=== PATIENT | male | born 1945 | race Caucasian/White ===

== ENCOUNTER → 2019-03-04 13:09 | Outpatient (CLI) | payer SELFPAY ==
--- NOTE | 2019-03-04 13:18 | CT_ITS ---
STUDY: CARDIAC CALCIUM SCORING - CT CHEST REASON FOR EXAM: Male, 73 years old. Screening RADIATION DOSAGE (If Supplied By Facility): CTDIvol = ( 12.19 ) mGy, DLP = ( 195.04 ) mGycm TECHNIQUE: Axial non-enhanced images were acquired through the heart for the sole purpose of measuring coronary artery calcium. Individualized dose optimization techniques were used for this CT. COMPARISON: None. FINDINGS: Please see the patient's medical record for a personalized calcium score. The visualized lungs are grossly clear. 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 CT/Limited Chest CT w/CCTA IMPRESSION: Please see the patient's medical record for the visualized calcium score. 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 Please go to: [email or web address] , for a description of the calculator. Electronically Signed: Gokul Moser, at 14:43 EDT Tel , Service support ,
[2019-03-04 13:35] VITALS: BP 128/64; PULSE 61; RESP 18; TEMP 37; O2SAT 96; BMI 29.2
--- NOTE | 2019-03-04 16:58 | CA.SCORE ---
Calcium Scoring Date of Study:: 03/04/19 Coronary Calcium Scoring: High-resolution Computed Tomographic imaging of the chest was performed on 03/04/2019 with particular attention paid to the coronary arteries. Images from the examination were analyzed for the presence and extent of coronary artery calcification , using coronary calcium quantification software. The patient tolerated the procedure well and there were no complications. The results of the coronary calcification analysis are provided below. - Findings Left Main (LM): 5.17 Left Anterior Descending (LAD): 90.2 Left Circumflex (LCX): 0 Right Coronary Artery (RCA): 83 Total Agatston Score: 178.37 Percentile Ranking: Percentile ranking: Between 25% and 50% of people of the same gender/similar age had the same or lower scores Calcium Scoring Interpretation: 0 No identifiable atherosclerotic plaque. Very low cardiovascular disease risk. <5% chance of presence coronary artery disease A Negative Examination 1-10 Minimal Plaque burden. Significant coronary artery disease very unlikely. 11-100 Mild plaque burden. Likely mild or minimal coronary atherosclerosis. 101-400 Moderate plaque burden Moderate non-obstructive coronary artery disease highly likely. Over 400 Extensive plaque burden. High likelihood of at least one significant coronary stenosis (>50% diameter) Calcium Score: 101 - 400 Moderate non-obstructive coronary artery disease highly like Conclusion: Continue cardiovascular risk factor evaluation and care as deemed appropriate
== END ==
PROVIDERS: Family Provider Family Medicine; PCP Family Medicine; Referring Provider Family Medicine; Visit Provider Family Medicine
DX: Z13.6 Encounter for screening for cardiovascular disorders (principal); I65.29 Occlusion and stenosis of unspecified carotid artery; I71.2 Thoracic aortic aneurysm, without rupture
CPT/HCPCS: 75571; 76380

== ENCOUNTER → 2019-04-04 07:09 | Outpatient (CLI) | payer MEDICARE, OTHER, SELFPAY ==
[2019-03-22 14:57] VITALS: BMI 29.8
--- NOTE | 2019-04-04 07:11 | CT_ITS ---
STUDY: CT CHEST WITH CONTRAST REASON FOR EXAM: Male, 73 years old. Aneurysm. RADIATION DOSAGE (If Supplied By Facility): CTDIvol = ( 18.83 ) mGy, DLP = ( 682.02 ) mGycm TECHNIQUE: Transaxial imaging was performed following intravenous administration of 100 IV Isovue 300. Individualized dose optimization techniques were used for this CT. COMPARISON: None. FINDINGS: The lungs are hyperexpanded. Possible mild COPD. Slight fibrotic change along the posterior surfaces of both lower lobes. No infiltrates. No effusions. There is no demonstrated pleural abnormality. Normal heart and pericardium. Normal mediastinum. Normal hilar regions. Normal enhanced pulmonary arteries. There is a descending aortic aneurysm with greatest cross-sectional dimension of 4.6 cm. No evidence for dissection. Tortuous descending thoracic aorta. There are multi-level degenerative changes of the thoracic spine. There is no demonstrated abnormality of the visualized upper abdomen. CT/Chest WITH Contrast IMPRESSION: Probable COPD. No acute chest disease. Ascending aortic aneurysm with greatest cross-sectional dimension of 4.6 cm. No dissection. Electronically Signed: Ricki Jackson MD at 19:02 EDT , Service support ,
[2019-04-04 07:31] LABS: CREATININE FINGERSTICK 0.9 mg/dL (0.70-1.30); EGFR FINGERSTICK > 60.0000 mL/min (>60)
--- NOTE | 2019-04-04 07:45 | AAVD_ITS ---
Reason For Study: PAD Aorta Measurements Aorta Doppler Measurements Proximal aorta measures1.82 x 1.89cm. in cross- Peak systolic flow velocities within the proximal sectional axis. aorta measure 57.3 cm/sec. Proximal aorta measures1.87cm. in longitudinal Peak systolic flow velocities within the mid aorta axis. measure 56.3 cm/sec. Mid aorta measures1.57 x 1.44cm. in cross- Peak systolic flow velocities within the distal sectional axis. aorta measure 58.9 cm/sec. Mid aorta measures1.51cm. in longitudinal axis. Distal aorta measures1.30 x 1.46cm. in cross- sectional axis. Distal aorta measures1.46cm. in longitudinal axis. Left Iliac Artery Left iliac artery measures .94 x 1.00 cm. in the cross-sectional axis. Left iliac artery measures .94 cm. in the longitudinal axis. Peak systolic velocity in the left iliac artery measures 80.9 cm/sec. Right Iliac Artery Right iliac artery measures .89 x 1.07 cm. in the cross-sectional axis. Right iliac artery measures .88 cm. in the longitudinal axis. Peak systolic velocity in the right iliac artery measures 60.0 cm/sec. Procedure Aorta IVC Iliac vasculature or bypass grafts [id number]. The exam was diagnostic. Exam performed in department. Interpretation Summary 1.82 x 1.89cm abdominal aorta proximally. Normal flow velocities Right common iliac 0.89 x 1.07cm Left common iliac 0.94 x 1 cm No evidence for abdominal aortic aneurysm Ordering Physician: Virgilio Nava Performed By: Issac Figueroa RVDeondre
== END ==
PROVIDERS: Family Provider Family Medicine; PCP Family Medicine; Referring Provider Internal Medicine Cardiovascular Disease; Visit Provider Internal Medicine Cardiovascular Disease
DX: I71.2 Thoracic aortic aneurysm, without rupture (principal); I65.23 Occlusion and stenosis of bilateral carotid arteries; I10 Essential (primary) hypertension; R93.1 Abnormal findings on diagnostic imaging of heart and coronary circulation; R06.02 Shortness of breath
CPT/HCPCS: 71260; 93978; Q9967

== ENCOUNTER → 2019-04-10 06:59 | Outpatient (CLI) | payer MEDICARE, OTHER, SELFPAY ==
[2019-03-22 14:57] VITALS: BMI 29.8
--- NOTE | 2019-04-10 07:01 | ECHOCS_ITS ---
Reason For Study: DYSPNEA/SOB Procedure This was a 2D Doppler, Color Flow transthoracic echocardiogram. The study was technically difficult. Contrast injection was performed. Left Ventricle Normal LV size. Left ventricular systolic function is normal. The estimated ejection fraction is 65 %. No evidence for diastolic dysfunction. No regional wall motion abnormalities noted. Right Ventricle Normal RV size. Normal systolic function. Atria The left atrium is mildly enlarged. Normal right atrium. No doppler evidence for ASD. Mitral Valve There is moderate mitral annular calcification. Extension of the mitral annular calcification onto the posterior mitral valve leaflet. Mild (1+) mitral valve insufficiency. Tricuspid Valve Normal tricuspid valve. Mild to moderate (1-2+) tricuspid valve insufficiency. Right ventricular systolic pressure estimated to be 22 mmHg. Aortic Valve Trisinus/trileaflet aortic valve. Moderate focal aortic valve calcification. Pulmonic Valve The pulmonic valve is not well visualized. Great Vessels Moderately dilated ascending aorta. Pericardium/Pleural No pericardial effusion. Medication Diluted definity 3.0ml given slow IV push to enhance endocardial definition. MMode/2D Measurements & Calculations LVIDd: 4.5 cm IVSd: 0.90 cm Ao root diam: 4.9 cm LVIDs: 3.1 cm LVPWd: 0.99 cm RVDd: 3.1 cm FS: 31.4 % LAV(MOD-bp): 43.2 ml EDV(MOD-sp4): 108.7 ml LA A4 area: 16.6 cm2 LAV(MOD-bp) Indexed: 21.0 ml/m2 LAV(MOD-sp2): 38.4 ml LAV(MOD-sp4): 45.6 ml LA dimension(2D): 4.2 cm RA A4 area: 13.7 cm2 Time Measurements MV dec time: 0.25 sec Doppler Measurements & Calculations MV E max rush: 69.7 cm/sec Lat Peak E' Rush: 7.2 cm/sec Med Peak E' Rush: 6.0 cm/sec MV A max rush: 88.8 cm/sec E/E' lat: 9.7 E/E' med: 11.6 MV E/A: 0.78 Ao V2 max: 82.2 cm/sec LV V1 max: 67.2 cm/sec PA V2 max: 63.0 cm/sec Ao max P.7 mmHg LV V1 max P.8 mmHg TR max rush: 219.8 cm/sec TR max P.3 mmHg Interpretation Summary The study was technically difficult. Contrast injection was performed. Left ventricular systolic function is normal. The estimated ejection fraction is 65 %. The left atrium is mildly enlarged. There is moderate mitral annular calcification. Extension of the mitral annular calcification onto the posterior mitral valve leaflet. Mild (1+) mitral valve insufficiency. Mild to moderate (1-2+) tricuspid valve insufficiency. Moderate focal aortic valve calcification. Moderately dilated ascending aorta. Right ventricular systolic pressure estimated to be 22 mmHg. No evidence for diastolic dysfunction. Ordering Physician: Virgilio Nava Referring Physician: Leif Juarez Performed By: Yamila Smith RDCS, RVT
--- NOTE | 2019-04-10 09:39 | STRESSREP_ITS ---
Stress Test Report Date: 04-10-19 Procedure: Exercise tolerance test/imaging study Indications: Shortness of breath/dyspnea on exertion; abnormal coronary calcium score; CAD Consent: Per the patient Procedure: The patient exercised on a Jason protocol for 4 minutes and 30 seconds completing 1 minute of Stage I and 1 minute and 30 seconds of Stage II achieving a peak heart rate of 148 bpm (101 % predicted maximal heart rate) with a peak blood pressure 154/82 mmHg and a peak MET capacity of 6 METs. The baseline ECG demonstrated normal sinus rhythm. The peak exercise ECG demonstrated somatic/motion artifact with no obvious ECG changes. There was a rare PVC during exercise and a rare PAC during recovery. The functional capacity was considered decreased. There was no complaint of chest discomfort during exercise or recovery. The examination was discontinued secondary to dyspnea. Impression: 1. Technically adequate (percent predicted maximal heart rate greater than 85%) exercise tolerance test 2. Peak exercise ECG with somatic/motion artifact with no obvious ECG changes 3. There was a rare PVC during exercise and a rare PAC during recovery 4. Nuclear images pending Myocardial perfusion imaging study: Technique: The patient was injected with 9.1 mCi of technetium 99m Cardiolite and subsequently rest SPECT Cardiolite nuclear imaging was obtained in the horizontal long, vertical long, and short axis views. The patient exercised on a Jason protocol for 4 minutes and 30 seconds completing 1 minute of Stage I and 1 minute and 30 seconds of Stage II achieving a peak heart rate of 148 bpm (101 % predicted maximal heart rate) with a peak blood pressure 154/82 mmHg and a peak MET capacity of 6 METs. The patient was injected with 30.6 mCi of technetium 99m Cardiolite and subsequently stress SPECT Cardiolite nuclear imaging was obtained in the horizontal long, vertical long, and short axis views. A gated Cardiolite study at peak stress was obtained. Interpretation: Rest and stress SPECT Cardiolite nuclear imaging status post realignment, normalization, and attenuation correction, demonstrates the appearance of relati ve uniform tracer uptake at rest. Status post stress there is subtle diminished tracer uptake in portions of the distal anterior/anterior apical segments.. There is end systolic thickening and brightening. The gated Cardiolite study demonstrates myocardial thickening and inward wall motion. The reported LVEF is 66 %. Impression: 1. Rest and stress SPECT Cardiolite nuclear imaging demonstrate myocardial perfusion changes concerning for an area of stress-induced myocardial ischemia in portions of the distal anterior/anterior apical segments, however, an area of shifting soft tissue attenuation/artifact cannot necessarily be excluded. 2. The gated Cardiolite study reports an LVEF of 66 %. This note was generated with [employer] software. It may contain incorrect words, spelling, and punctuation that were not noted in checking the note before signing.
== END ==
PROVIDERS: Family Provider Family Medicine; PCP Family Medicine; Referring Provider Internal Medicine Cardiovascular Disease; Visit Provider Internal Medicine Cardiovascular Disease
DX: I71.2 Thoracic aortic aneurysm, without rupture (principal); I65.23 Occlusion and stenosis of bilateral carotid arteries; R93.1 Abnormal findings on diagnostic imaging of heart and coronary circulation; I10 Essential (primary) hypertension; R06.02 Shortness of breath
CPT/HCPCS: 78452; 93017; 93306; A9500; Q9957; A4216; C8929

== ENCOUNTER 2019-04-19 08:57 | Day surgery (SDC) | payer MEDICARE, OTHER, SELFPAY ==
[2019-03-22 14:57] VITALS: BMI 29.8
[2019-04-16 13:58] VITALS: BMI 29.8
[2019-04-16 15:10] LABS: Hematocrit 47.3 % (40-54); Hemoglobin 15.8 g/dL (13.0-16.5); Mean Corp Hgb Conc 33.4 g/dL (32-36); Mean Corpuscular Hgb 30.7 pg (27.0-32.0); Mean Corpuscular Volume 91.8 fL (80-94); Mean Platelet Vol. 9.2 fl (6.2-12.0); Platelet Count 241 K/mm3 (150-450); RBC Distribution Width CV 13.1 % (11.6-14.6); RBC Distribution Width SD 44.1 fl (35.1-43.9); Red Blood Count 5.15 M/mm3 (4.6-6.2); White Blood Count 9.8 K/mm3 (4.4-11.0)
[2019-04-16 15:15] LABS: International Normalized Ratio 1.2; Prothrombin Time (Protime)PT. 15.4 SECONDS (11.7-14.9)
[2019-04-16 15:16] LABS: Partial Thromboplast Time 33.8 Seconds (24.1-36.2)
[2019-04-16 15:49] LABS: AST(SGOT) 24 U/L (15-37); Alanine Aminotransfer ALT/SGPT 33 U/L (16-61); Albumin, Serum 3.8 g/dL (3.2-5.0); Alkaline Phosphatase 70 U/L (45-117); Anion Gap 8 (5-15); BUN 18 mg/dL (7-18); BUN/Creat Ratio 17.3 RATIO (10-20); Bilirubin, Direct 0.11 mg/dL (0.00-0.30); Chloride 108 mmol/L (98-107); Cholesterol 164 mg/dL (200); Creatinine, Serum 1.04 mg/dL (0.70-1.30); EST Glomerular Filtration Rate 74 mL/min (>60); Est Glom Filt Rate - Afr Amer 90 mL/min (>60); Globulin 3.3 g/dL (2.2-4.2); Glucose 99 mg/dL (74-106); High Density Lipoprotein 38 mg/dL; Potassium 3.9 mmol/L (3.5-5.1); Protein, Total 7.1 g/dL (6.4-8.2); Sodium Level 142 mmol/L (136-145); Triglycerides 179 mg/dL; Very Low Density Lipoprotein 36 mg/dL (5-40)
[2019-04-18 07:42] VITALS: BMI 29.8
--- NOTE | 2019-04-19 11:41 | PCM.HP.BLA ---
Problem List (1) Abnormal stress test Status: Acute (2) Abnormal cardiac CT angiography Status: Acute (3) SOB (shortness of breath) Status: Acute (4) Essential hypertension Status: Chronic History and Physical Date of Admission: 04/19/19 [facility] 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 The patient states that he has had a history of hypertension. He has been treated for it. He believes his blood pressures been under reasonably good control. He has had shortness of breath and dyspnea. He attributes this to his age and weight gain and diminished functional status. He denies ongoing chest discomfort associated with his shortness of breath/dyspnea. He has not had near syncope or syncope. He has undergone previous noninvasive evaluation in the past. It appears that in June 2006 through the [facility] system he underwent a stress echocardiogram which was deemed negative. He states secondary to a [employer] screening event he proceeded with carotid artery duplex study in January of this year through the [facility] system. Those findings demonstrated mild disease bilaterally. He states he was encouraged to have a chest CT to evaluate for coronary calcification. This was performed recently at [facility]. His coronary calcium score was reported at 178. This placed him in a moderate plaque burden risk. Also on his CT scan he was found to have evidence per radiology of a 5.0 x 4.9 cm aneurysm of the a sending aorta. He states this is a new diagnosis for him. Today in the office he had an ECG. He was noted to be in sinus rhythm with PACs and poor R wave progression. He states that he and his are planning a road trip to the [facility] in approximately 1 week. He states they will be gone for approximately 6 weeks. However his states that there is no confirmed dates as of yet and this trip can be postponed if need be. Intake Vital Signs 03/22/19 Height 5 ft 9 in 03/22/19 Weight: 202 lb 03/22/19 Body Mass Index (BMI) 29.8 03/22/19 Blood Pressure 132/64 H 03/22/19 Blood Pressure Location Lt brachial 03/22/19 Blood Pressure Position Sitting 03/22/19 Respiratory Rate 16 03/22/19 Pulse Rate 60 03/22/19 Pulse Source Auscultation 03/22/19 Body Mass Index (BMI) 29.2 Intake Visit Reasons: Abn calcium score/Ref. [employer] Media Relations Specialist Required: No Accompanied by: Allergies lanolin Allergy (Severe, Verified 03/22/19 14:57) Rash mold Allergy (Verified 03/22/19 14:57) Unknown Penicillins Adverse Reaction (Verified 03/22/19 14:57) Swelling Medications C,E,Zinc,Copper 11/Fwudb3i/Lut [Ocuvite Adult 50 Plus Softgel] 1 ea PO DAILY 03/04/19 [History Confirmed 03/22/19] Finasteride [Proscar] 5 mg PO DAILY 03/04/19 [History Confirmed 03/22/19] Lisinopril [Zestril] 10 mg PO DAILY 03/04/19 [History Confirmed 03/22/19] Selenium 200 mcg PO DAILY 03/04/19 [History Confirmed 03/22/19] Tamsulosin HCl [Flomax] 0.4 mg PO DAILY 03/04/19 [History Confirmed 03/22/19] aspirin 81 mg tablet,delayed release 81 mg PO DAILY #30 tab 03/22/19 [Rx Confirmed 03/22/19] triamcinolone acetonide 0.1 % topical cream 1 applic TOPICAL TID PRN 03/22/19 [History Confirmed 03/22/19] turmeric root extract 1,053 mg tablet 1,000 mg PO DAILY tab 03/22/19 [History Confirmed 03/22/19] REPLACED BY [facility] Medical History Bilateral carotid artery stenosis (Chronic) COPD (chronic obstructive pulmonary disease) (Chronic) Essential hypertension (Chronic) Abnormal cardiac CT angiography (Acute) History of poliomyelitis (Acute) BPH (benign prostatic hyperplasia) (Chronic) DDD (degenerative disc disease) (Chronic) Macular degeneration (Chronic) Psoriasis (Chronic) Surgical History History of hernia repair (Resolved) History of repair of left rotator cuff (Resolved) S/P clubfoot release (Resolved) Family History Father CAD (coronary artery disease) Hypertension Mother Hypertension Social History (Updated 03/22/19 @ 17:37 by Virgilio Nava MD) Smoking Status: Former smoker alcohol intake: current details: occasional substance use type: does not use caffeine: Yes Type: coffee Number of servings: 4 ROS Const Const: Negative for fatigue, weakness, frequent falls, excessive sweating, weight gain or weight loss Eyes Eyes: Negative for transient loss of vision, blurry vision or change in vision ENT ENT: Negative for dizziness or balance problems Cardio Chest Pain: No Palpitations: No Edema: None Muscle aches with walking: None Resp Respiratory: Positive for SOB with activity (increased last year ) and Cough (dry); negative for SOB at rest GI GI: Negative vomiting or vomiting blood/hematemesis : Negative for hematuria Musc Musc: Negative for muscle aches/ myalgia, muscle weakness, joint pain or balance problems Skin Skin: Negative non-healing lesions or rash Neuro Neuro: Negative for dizziness, lightheadedness, orthostatic symptoms, frequent falls, weakness or blurry vision Talha Hematologic/Lymphatic: Negative for easy bleeding Endo Endo: Negative for fatigue or excessive sweating Psych Psych: Negative for anxiety or depression Allergy Allergy/Immunology: Negative for hives, Negative for rash Cardiology Exam Const Appearance: cooperative, healthy appearing, comfortable, well developed and well groomed Nutritional Appearance: overweight Orientation: alert, awake and oriented x3 Limitations: altered mental status Head Head: normal to inspection, normocephalic and atraumatic Ears: hearing grossly normal bilaterally Nose: external nose normal Face and Sinus: face symmetric Mouth: oral mucosae normal Teeth and gingiva: fair dentition Eyes Eyelids: eyelids normal Conjunctivae: conjunctivae normal Pupils: PERRL EOM: EOM intact bilaterally Neck Neck: normal visual inspection and full ROM Carotids: normal carotid upstroke Chest Chest inspection: normal inspection of the chest, symmetric chest movement and normal respiratory effort Auscultation: Bilateral: Clear to Auscultation Cardio Palpation: normal PMI Rate: regular rate Rhythm: regular rhythm Heart sounds: S1 normal and S2 normal GI GI: normal to inspection, soft and bowel sounds present Neuro General: alert, awake, oriented x3 and moves all extremities Skin Skin: no rashes or lesions noted Extremities Pulses: Normal: Right Radial Pulse, Left Radial Pulse Lower Extremity Edema: None: Bilateral Psych Psychological: normal affect Assessment & Plan 1. Thoracic aortic aneurysm without rupture I71.2 Plan At the present time he does have findings of a thoracic aortic aneurysm. This is based upon a noncontrast CT scan. He will undergo further evaluation. This will include an echocardiogram to further assess his aortic root/a sending aorta as well as his left ventricular wall motion and systolic function based upon his findings and his symptoms. He will have a formal chest CT scan with IV contrast to further evaluate his entire thoracic aorta in more detail. Based upon this finding, his age, his history of smoking, he will also have an abdominal ultrasound performed to evaluate for any evidence of abdominal aortic aneurysm. His findings will help lead to further evaluation and care. He knows that he may require a CT surgery consultation as a baseline evaluation in anticipation for a future thoracic aortic aneurysm surgical procedure. Orders Orders: Chest WITH Contrast Today Echo Complete Today Nuclear Stress Test - Treadmil Today Abd Aortic/IVC Duplex scan Today Lipid Profile 1 Day Liver Profile 1 Day 2. Bilateral carotid artery stenosis I65.23 Plan He does have mild bilateral carotid artery stenosis based upon his noninvasive studies. He does need to continue risk factor modification and medical management. Orders Orders: Chest WITH Contrast Today Echo Complete Today Nuclear Stress Test - Treadmil Today Abd Aortic/IVC Duplex scan Today Lipid Profile 1 Day Liver Profile [address] angiography R93.1 Plan He does have an abnormal chest CT scan for coronary artery calcification. It has placed him in a moderate risk category. Based upon this finding and his symptoms he will undergo further evaluation. This will include an echocardiogram to assess his left ventricular wall motion systolic function and it will include an exercise tolerance test/imaging study to evaluate for any obvious evidence of myocardial ischemia that would warrant further evaluation in the cardiac catheterization laboratory. Orders Orders: 12 Lead EKG performed by [facility] Today Chest WITH Contrast Today Echo Complete Today Nuclear Stress Test - Treadmil Today Abd Aortic/IVC Duplex scan Today Lipid Profile 1 Day Liver Profile 1 Day 4. Essential hypertension I10 Plan He will continue medical management of his hypertension. Orders Orders: 12 Lead EKG performed by BMS Today Chest WITH Contrast Today Echo Complete Today Nuclear Stress Test - Treadmil Today Abd Aortic/IVC Duplex scan Today Lipid Profile 1 Day Liver Profile 1 Day 5. COPD (chronic obstructive pulmonary disease) J44.9 Plan He will continue evaluation care COPD by his other physicians. 6. Shortness of breath R06.02 Plan He does have shortness of breath and dyspnea. There may be a component related to his age, his weight, his diminished functional status, however, there is also concern based on his cardiovascular findings of underlying CAD and myocardial ischemia or changes in his left ventricular wall motion or systolic function, etc. Thus he will undergo evaluation care as noted above. Orders Orders: Chest WITH Contrast Today Echo Complete Today Nuclear Stress Test - Treadmil Today Abd Aortic/IVC Duplex scan Today Plan Detail Other Orders Orders: Lipid Profile 1 Day E78.00 Liver Profile 1 Day E78.00 Other Medications New: aspirin 81 mg PO DAILY 30 tabs 0RF Additional Comments He was asked to initiate aspirin 81 mg p.o. 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 His medical regimen may change based upon his ongoing cardiovascular evaluation and care. It is noted that in 2014 he had a [facility] report of a cholesterol 179 with an LDL of 113 and an HDL of 47. His triglycerides were 96. More recent lipid profiles are unavailable for review at this time. If no other lipid profiles can be found and he may need this repeated to assist in his risk factor evaluation and medical therapy. The above was discussed with the patient and spouse. He was agreeable to proceeding in this manner. Both he and his are agreeable to postponing their trip to the [facility] if need be to accomplish his cardiovascular evaluation. Thank you for allowing me to participate in the care of your patient. Please don't hesitate to call if any issues arise. This note was generated using a voice recognition system and there may be incorrect words, spelling or punctuation that were not noted when reviewing the office note prior to saving. Follow Up 3 Months (with PFM) Coding Level of Care Code Off vis,new,level 5 Diagnoses Thoracic aortic aneurysm without rupture I71.2 Bilateral carotid artery stenosis I65.[address] angiography R93.1 Essential hypertension I10 COPD (chronic obstructive pulmonary disease) J44.9 ??Chronic bronchitis type: unspecified Shortness of breath R06.02 Coding Level of Care Code Off vis,new,level 5 Diagnoses Thoracic aortic aneurysm without rupture I71.2 Bilateral carotid artery stenosis I65.[address] angiography R93.1 Essential hypertension I10 COPD (chronic obstructive pulmonary disease) J44.9 ??Chronic bronchitis type: unspecified Shortness of breath R06.02 Supplemental Info Supplemental Information Diagnostics Electrocardiogram 03/22/[address] 03/04/19 03/22/19 3117 <Electronically signed by Virgilio Nava MD> Date Virgilio Nava MD Cosigner Signature: Date (if applicable) CC: Leif Juarez MD ~ I have examined the patient the following changes are noted: The patient underwent further evaluation with an exercise tolerance test/imaging study. The results are as noted below. Stress Test Report Date: 04-10-19 Procedure: Exercise tolerance test/imaging study Indications: Shortness of breath/dyspnea on exertion; abnormal coronary calcium score; CAD Consent: Per the patient Procedure: The patient exercised on a Jason protocol for 4 minutes and 30 seconds completing 1 minute of Stage I and 1 minute and 30 seconds of Stage II achieving a peak heart rate of 148 bpm (101 % predicted maximal heart rate) with a peak blood pressure 154/82 mmHg and a peak MET capacity of 6 METs. The baseline ECG demonstrated normal sinus rhythm. The peak exercise ECG demonstrated somatic/motion artifact with no obvious ECG changes. There was a rare PVC during exercise and a rare PAC during recovery. The functional capacity was considered decreased. There was no complaint of chest discomfort during exercise or recovery. The examination was discontinued secondary to dyspnea. Impression: 1. Technically adequate (percent predicted maximal heart rate greater than 85%) exercise tolerance test 2. Peak exercise ECG with somatic/motion artifact with no obvious ECG changes 3. There was a rare PVC during exercise and a rare PAC during recovery 4. Nuclear images pending Myocardial perfusion imaging study: Technique: The patient was injected with 9.1 mCi of technetium 99m Cardiolite and subsequently rest SPECT Cardiolite nuclear imaging was obtained in the horizontal long, vertical long, and short axis views. The patient exercised on a Jason protocol for 4 minutes and 30 seconds completing 1 minute of Stage I and 1 minute and 30 seconds of Stage II achieving a peak heart rate of 148 bpm (101 % predicted maximal heart rate) with a peak blood pressure 154/82 mmHg and a peak MET capacity of 6 METs. The patient was injected with 30.6 mCi of technetium 99m Cardiolite and subsequently stress SPECT Cardiolite nuclear imaging was obtained in the horizontal long, vertical long, and short axis views. A gated Cardiolite study at peak stress was obtained. Interpretation: Rest and stress SPECT Cardiolite nuclear imaging status post realignment, normalization, and attenuation correction, demonstrates the appearance of relative uniform tracer uptake at rest. Status post stress there is subtle diminished tracer uptake in portions of the distal anterior/anterior apical segments.. There is end systolic thickening and brightening. The gated Cardiolite study demonstrates myocardial thickening and inward wall motion. The reported LVEF is 66 %. Impression: 1. Rest and stress SPECT Cardiolite nuclear imaging demonstrate myocardial perfusion changes concerning for an area of stress-induced myocardial ischemia in portions of the distal anterior/anterior apical segments, however, an area of shifting soft tissue attenuation/artifact cannot necessarily be excluded. 2. The gated Cardiolite study reports an LVEF of 66 %. Status post review of the patient's clinical course was recommended the patient undergo further evaluation with diagnostic cardiac catheterization. The procedure and risks were discussed with him. The patient was in agreement with this approach. This note was generated using a voice recognition system and there may be incorrect words, spelling or punctuation that were not noted when reviewing the office note prior to saving.
--- NOTE | 2019-04-19 13:44 | CL.D_ITS ---
Patient Name: MARLON HAMMOND Study Date: 04/19/2019 Performing: Virgilio Nava MD Ht: 68.89 inches 175 cm : 1945 Wt: 202.83 lbs 92 kg Age: 73 Gender: male BSA: 2.08 PROCEDURE(S) PERFORMED FI91-[facility]/COR/LV CLINICAL PROFILE AND INDICATIONS Indications: Suspected CAD Heart Failure: None Stress/Imaging Date: 04/10/2019Stress Test with SPECT MPI: Positive Angina Classification Anginal Classification w/in 2 Weeks: CCS III CONCLUSIONS Elevated Left Ventricular End Diastolic Pressure Normal LV size, wall motion,and systolic function LVEF: by LV gram 65 % [place] Multivessel CAD Mitral Valve Insufficiency Mild Aortic Root Aneurysm RECOMMENDATIONS Risk factor modification Medical therapy DESCRIPTION OF PROCEDURE The patient arrived to the procedure lab. The risks and benefits of the procedure as well as a full d escription of our services here and current unavailability of surgical backup were fully explained to the patient and/or their significant other prior to the catheterization. The Timeout was completed, verifying the correct patient and procedure. The patient's procedural site was prepped and draped in the usual fashion. Local anesthetic was given subcutaneously to right radial region with Lidocaine 2% . Local anesthetic was given subcutaneously to right groin region with Lidocaine 2%. Using a modified Seldinger technique, arterial access was obtained via the right femoral artery, a 4Fr sheath was ins erted Left Coronary Artery selective angiography was performed in multiple views using a 4 Fr. JL5 c atheter. Right Coronary Artery selective angiography was then performed in multiple views using a 4 F r. 3DRC catheter. Left Ventriculography was performed in TORRES projection using a 4 Fr. Pigtail catheter. LV to AO pullback pressures were then recorded.The arterial sheath was pulled and m anual compression applied until hemostasis is achieved. CORONARY ANGIOGRAPHY DOMINANCE: Right Dominant LEFT HEART ASSESSMENT Left Ventricular Ejection Fraction: by LV Gram 65 % Normal LV wall motion Elevated Left Ventricular End Diastolic Pressure LVEDP: 26 mmHg LEFT MAIN: proximal: smooth: 10 - 25 % Stenosis LEFT ANTERIOR DESCENDING ARTERY: PROX LAD: Mild luminal irregularities CIRCUMFLEX ARTERY: MID CIRC: Mild luminal irregularities RIGHT CORONARY ARTERY: PROX RCA: Mild luminal irregularities VALVE FINDINGS: Normal Aortic Valve function Mitral Valve Insufficiency - Grade 1 AORTIC ROOT: Aneurysm COMPLICATIONS No Complications PROCEDURE MEDICATIONS Versed 1 mg IV Fentanyl 50 mcg IV Oxygen: 2 L/min via nasal cannula SUMMARY OF HEMODYNAMIC DATA Time AIR REST ECG 09:19:26 AO 149/87 (116) SA 12:38:50 LV 153/3, 32 12:52:04 LV 151/-8, 26 12:52:10 LV 167/-1, 26 12:54:52 LVp 172/-4, 24 12:54:57 AOp 174/83 (120) 12:55:02 Signed By Virgilio Nava MD On 04/19/2019 13:43:17 Virgilio Nava MD
[2019-04-19 15:15] VITALS: BP 157/74; PULSE 79; RESP 18; O2SAT 97
[2019-04-19 16:15] VITALS: BP 137/60; PULSE 85; RESP 16; O2SAT 97
[2019-04-19 17:49] VITALS: BP 137/90; PULSE 85; RESP 18; O2SAT 97
== END 2019-04-19 17:38 | disposition home or self-care (01) ==
LOC: CLSP 08:57 → PCU 15:40
PROVIDERS: Family Provider Family Medicine; PCP Family Medicine; Referring Provider Internal Medicine Cardiovascular Disease; Visit Provider Internal Medicine Cardiovascular Disease
DX: I25.10 Atherosclerotic heart disease of native coronary artery without angina pectoris (principal); I34.0 Nonrheumatic mitral (valve) insufficiency; I71.2 Thoracic aortic aneurysm, without rupture; I65.23 Occlusion and stenosis of bilateral carotid arteries; I10 Essential (primary) hypertension; J44.9 Chronic obstructive pulmonary disease, unspecified; R06.02 Shortness of breath; R93.1 Abnormal findings on diagnostic imaging of heart and coronary circulation; R94.39 Abnormal result of other cardiovascular function study; Z79.82 Long term (current) use of aspirin; Z79.899 Other long term (current) drug therapy; Z87.891 Personal history of nicotine dependence
CPT/HCPCS: 36415; 80048; 80061; 80076; 85027; 85610; 85730; 93458; 99152; 99153; J7040; Q9967; C1769; C1894

== ENCOUNTER → 2020-07-13 08:00 | Outpatient (CLI) | payer MEDICARE, OTHER, SELFPAY ==
[2020-01-08 15:33] VITALS: BMI 30.4
[2020-07-11 10:52] LABS: Creatinine, Serum 0.94 mg/dL (0.70-1.30); EST Glomerular Filtration Rate 83 mL/min (>60); Est Glom Filt Rate - Afr Amer 101 mL/min (>60)
--- NOTE | 2020-07-13 08:01 | CT_ITS ---
STUDY: CT CHEST WITH CONTRAST REASON FOR EXAM: Male, 74 years old. TAA RADIATION DOSAGE (If Supplied By Facility): CTDIvol = ( 13.81 ) mGy, DLP = ( 514.70 ) mGycm TECHNIQUE: Transaxial imaging was performed following intravenous administration of IV 100mL Isovue-300. Multiplanar coronal and sagittal images were reformatted. Individualized dose optimization techniques were used for this CT. COMPARISON: Comparison is made with prior study dated 04/04/2019. FINDINGS: Stable mild degree of increased linear markings at the lung bases suggestive of scarring. There is no demonstrated pleural abnormality. Normal heart and pericardium. Normal mediastinum. Normal hilar regions. Normal enhanced pulmonary arteries. Once again, there is aneurysmal dilatation of the ascending thoracic aorta. The root of the aorta measures 4.7 cm. This is essentially unchanged. There are multi-level degenerative changes of the thoracic spine. Increased kyphosis. There is no demonstrated abnormality of the visualized upper abdomen. CT/Chest WITH Contrast IMPRESSION: Stable dilatation of the root of the ascending thoracic aorta with a measurement of 4.7 cm. Electronically Signed: Lc Burgess, at 14:05 EST , Service support ,
== END ==
PROVIDERS: PCP Family Medicine; Referring Provider Internal Medicine Cardiovascular Disease; Visit Provider Internal Medicine Cardiovascular Disease
DX: I71.2 Thoracic aortic aneurysm, without rupture (principal)
CPT/HCPCS: 36415; 71260; 82565; Q9967

== ENCOUNTER → 2020-10-12 20:00 | Outpatient (CLI) | payer MEDICARE, OTHER, SELFPAY ==
[2020-09-09 15:17] VITALS: BMI 29.9
== END ==
PROVIDERS: PCP Family Medicine; Referring Provider Nurse Practitioner Acute Care; Visit Provider Nurse Practitioner Acute Care
DX: G47.33 Obstructive sleep apnea (adult) (pediatric) (principal)
CPT/HCPCS: 95811

== ENCOUNTER → 2021-06-18 12:36 | Outpatient (CLI) | payer MEDICARE, OTHER, SELFPAY ==
--- NOTE | 2021-06-18 12:40 | CT_ITS ---
STUDY: CTA CHEST REASON FOR EXAM: Male, 75 years old. thoracic aortic aneurysm RADIATION DOSAGE (If Supplied By Facility): CTDIvol = ( 12.92 ) mGy, DLP = ( 536.26 ) mGycm TECHNIQUE: The examination was performed with the intravenous administration of IV 100mL Isovue-370. Post-processing of the angiographic images was performed, with multiplanar reformation and 3D reconstruction. Individualized dose optimization techniques were used for this CT. COMPARISON: CT chest from 07/13/2020. FINDINGS: Lungs/pleura: Bibasilar dependent atelectasis. Some linear areas of scarring in the lung bases. No focal consolidations effusions, or pneumothorax. No suspicious pulmonary nodules/masses. Central airways are patent. Mediastinum: Heart size is normal. No pericardial effusion. No mediastinal masses. No lymphadenopathy. 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 The aortic arch and descending aorta is normal caliber with mild arterial atherosclerotic calcifications and atheromatous plaque. No dissection. Pulmonary arteries are unremarkable. Reflux of contrast into the portal venous system. Bones/soft tissues: Multilevel degenerative changes of thoracic spine. No destructive osseous lesions. Remote left-sided rib fractures. Visualized abdomen: Unremarkable. CT/CTA Chest W/WO Contrast IMPRESSION: 1. 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 2. No acute findings. 3. Lungs are clear. Electronically Signed: Balaji Aponte MD at 15:00 EST Tel , Service support ,
[2021-06-18 15:00] LABS: CREATININE FINGERSTICK 0.8 mg/dL (0.70-1.30); EGFR FINGERSTICK > 60.0000 mL/min (>60)
== END ==
PROVIDERS: PCP Family Medicine; Referring Provider Internal Medicine Cardiovascular Disease; Visit Provider Internal Medicine Cardiovascular Disease
DX: I71.2 Thoracic aortic aneurysm, without rupture (principal)
CPT/HCPCS: 71275; Q9967

== ENCOUNTER → 2022-07-01 | Outpatient (CLI) | payer MEDICARE, OTHER, SELFPAY ==
--- NOTE | 2022-07-01 13:56 | ECHOD_ITS ---
Reason For Study: MV INSUFF Procedure This was a 2D Doppler, Color Flow transthoracic echocardiogram. The exam was of adequate technical quality. Exam performed in department. Left Ventricle Normal LV size. Left ventricular systolic function is normal. The estimated ejection fraction is 70 %. No evidence for diastolic dysfunction. No regional wall motion abnormalities noted. Right Ventricle Normal RV size. Normal systolic function. Atria The left atrium is mildly enlarged. Normal right atrium. No doppler evidence for ASD. Mitral Valve There is moderate mitral annular calcification. Extension of the mitral annular calcification onto the base of the posterior mitral valve leaflet. The mitral papillary muscle appears thickened and/or calcified. Mild (1+) mitral valve insufficiency. Tricuspid Valve Normal tricuspid valve. Mild to moderate (1-2+) tricuspid valve insufficiency. Right ventricular systolic pressure estimated to be 39 mmHg. Aortic Valve Trisinus/trileaflet aortic valve. Mild focal aortic valve calcification. Mild (1+) aortic valve insufficiency. Pulmonic Valve The pulmonic valve is not well visualized. Great Vessels Moderately dilated aortic root. Pericardium/Pleural No pericardial effusion. MMode/2D Measurements & Calculations LVIDd: 4.7 cm IVSd: 1.1 cm Ao root diam: 4.7 cm LVIDs: 3.2 cm LVPWd: 0.85 cm RVDd: 3.7 cm FS: 32.1 % LAV(MOD-bp): 58.4 ml LVAd ap4: 28.9 cm2 SV(MOD-sp4): 64.1 ml LAV(MOD-bp) Indexed: 28.6 ml/m2 LVLd ap4: 7.4 cm LAV(MOD-sp2): 56.9 ml EDV(MOD-sp4): 93.3 ml LAV(MOD-sp4): 56.9 ml EDV(sp4-el): 95.4 ml LVAs ap4: 13.8 cm2 LVLs ap4: 6.2 cm ESV(MOD-sp4): 29.2 ml ESV(sp4-el): 26.2 ml EF(MOD-sp4): 68.7 % EF(sp4-el): 72.5 % SV(sp4-el): 69.2 ml LA A4 area: 20.4 cm2 LA dimension(2D): 4.1 cm RA A4 area: 18.2 cm2 Time Measurements MV dec time: 0.26 sec Doppler Measurements & Calculations MV E max rush: 72.5 cm/sec Lat Peak E' Rush: 9.5 cm/sec Med Peak E' Rush: 7.9 cm/sec MV A max rush: 86.4 cm/sec E/E' lat: 7.7 E/E' med: 9.2 MV E/A: 0.84 MV V2 max: 84.5 cm/sec Ao V2 max: 86.2 cm/sec MV max P.9 mmHg MV dec slope: 277.0 cm/sec2 Ao max P.0 mmHg MV V2 mean: 51.7 cm/sec Ao V2 mean: 58.6 cm/sec MV mean P.2 mmHg Ao mean P.6 mmHg MV V2 VTI: 26.5 cm Ao V2 VTI: 21.4 cm AV (velocity ratio): 1.0 AI max rush: 331.6 cm/sec LV V1 max: 84.0 cm/sec PA V2 max: 87.8 cm/sec AI max P.0 mmHg LV V1 max P.8 mmHg PA V2 mean: 62.8 cm/sec LV V1 mean P.5 mmHg AI dec slope: 163.3 cm/sec2 LV V1 mean: 56.0 cm/sec AI P1/2t: 594.7 msec LV V1 VTI: 21.9 cm TR max rush: 298.5 cm/sec TR max P.7 mmHg ECHO/Echo Complete Interpretation Summary Left ventricular systolic function is normal. The estimated ejection fraction is 70 %. There is moderate mitral annular calcification. Extension of the mitral annular calcification onto the base of the posterior mi tral valve leaflet. The mitral papillary muscle appears thickened and/or calcified. Mild (1+) mitral valve insufficiency. Mild to moderate (1-2+) tricuspid valve insufficiency. Mild focal aortic valve calcification. Mild (1+) aortic valve insufficiency. Moderately dilated aortic root. Right ventricular systolic pressure estimated to be 39 mmHg. No evidence for diastolic dysfunction. Ordering Physician: Tika Tirado Referring Physician: Tika Tirado Performed By: Jannette Morgan RCS
--- NOTE | 2022-07-01 13:56 | CT_ITS ---
STUDY: CTA CHEST REASON FOR EXAM: Male, 76 years old. TAA F/U RADIATION DOSAGE (If Supplied By Facility): CTDIvol = ( 13.05 ) mGy, DLP = ( 445.65 ) mGycm TECHNIQUE: The examination was performed with the intravenous administration of IV 100mL Isovue-370. Post-processing of the angiographic images was performed, with multiplanar reformation and 3D reconstruction. Individualized dose optimization techniques were used for this CT. COMPARISON: Comparison is made with prior examination of 06/18/2021. FINDINGS: Normal enhancement of the main pulmonary artery and right and left pulmonary arteries. Normal enhancement of the bilateral peripheral pulmonary arteries. There is no demonstrated pulmonary embolism. There is aneurysmal dilatation of the ascending aorta. The transverse diameter of the ascending aorta measures 52.2 mm''s. It previously measured 50 mm. There is no demonstrated aortic dissection. Normal heart and pericardium. Normal mediastinum. Normal hilar regions. Normal visualized trachea and bronchi. The lungs are well expanded. Stable mild increased linear markings at the lung bases suggestive of bibasilar scarring. Mild degree of emphysematous change. Normal pleura. Normal chest wall structures. There are degenerative changes of thoracic spine. Fatty infiltration of the liver. CT/CTA Chest W/WO Contrast IMPRESSION: Persistent dilatation of the proximal ascending thoracic aorta with a transverse dimension of 52.2 mm. Electronically Signed: Lc Burgess MD at 15:06 EST ,
[2022-07-01 14:50] LABS: CREATININE FINGERSTICK < 0.9 mg/dL (0.70-1.30); EGFR FINGERSTICK > 60.0000 mL/min (>60)
== END | disposition home or self-care (01) ==
LOC: CT 13:54
PROVIDERS: PCP Family Medicine; Referring Provider Physician Assistant Medical; Visit Provider Physician Assistant Medical
DX: I34.0 Nonrheumatic mitral (valve) insufficiency (principal)
CPT/HCPCS: 71275; 93306; Q9967

== ENCOUNTER → 2023-03-09 | Outpatient (CLI) | payer MEDICARE, OTHER, SELFPAY ==
--- NOTE | 2023-03-09 13:50 | CT_ITS ---
STUDY: CTA CHEST REASON FOR EXAM: Male, 77 years old. TAA RADIATION DOSAGE (If Supplied By Facility): CTDIvol = ( 20.19 ) mGy, DLP = ( 353.78 ) mGycm TECHNIQUE: The examination was performed with the intravenous administration of IV 100mL Isovue-370. Post-processing of the angiographic images was performed, with multiplanar reformation and 3D reconstruction. Individualized dose optimization techniques were used for this CT. COMPARISON: None. FINDINGS: Normal enhancement of the main pulmonary artery and right and left pulmonary arteries. Normal enhancement of the bilateral peripheral pulmonary arteries. There is no demonstrated pulmonary embolism. Atherosclerotic changes of the aorta with aneurysmal dilatation of the ascending aorta measuring approximately 5 cm maximum dimension without periaortic leak There is no demonstrated aortic dissection. Heart size is normal. There is mild coronary artery calcification Normal mediastinum. Normal hilar regions. Normal visualized trachea and bronchi. The lungs are well expanded. Minor subsegmental atelectasis in the right lower lobe. Mild bibasilar interstitial thickening. Normal pleura. Normal chest wall structures. Dorsal spine demonstrates degenerative change and multilevel chronic compression deformities Normal visualized upper abdomen. CT/CTA Chest W/WO Contrast IMPRESSION: ASHD. With proximal ascending aortic aneurysm measuring approximately 5 cm in diameter stable since previous exam. Mild subsegmental atelectasis right lower lobe and minor bibasilar interstitial thickening Electronically Signed: Mathew Portillo MD at 22:34 EDT ,
[2023-03-09 14:37] LABS: CREATININE FINGERSTICK 0.9 mg/dL (0.70-1.30); EGFR FINGERSTICK > 60.0000 mL/min (>60)
== END | disposition home or self-care (01) ==
PROVIDERS: PCP Family Medicine; Referring Provider Nurse Practitioner Gerontology; Visit Provider Nurse Practitioner Gerontology
DX: I71.20 Thoracic aortic aneurysm, without rupture, unspecified (principal)
CPT/HCPCS: 71275; Q9967; A4216

== ENCOUNTER → 2024-01-29 | Outpatient (CLI) | payer MEDICARE, OTHER, SELFPAY ==
--- NOTE | 2024-01-29 10:00 | CR.HP_ITS ---
CR - History & Physical General Arrival date:: 01/29/24 Arrival time:: 10:00 Date of Referral:: 12/29/23 Date of CR Evaluation:: 01/29/24 Referring Physician: Dr. Jones Primary Diagnosis: heart valve replacement History of Present Cardiac Event Onset Date Heart valve replacement or repair:: Yes (onset 11/06/2023) Medications Ambulatory Orders ?Medication ?Instructions ?Recorded finasteride 5 mg tablet 5 mg PO DAILY 03/04/19 selenium 200 mcg tablet 200 mcg PO DAILY 03/04/19 tamsulosin 0.4 mg capsule 0.4 mg PO DAILY 03/04/19 aspirin 81 mg tablet,delayed 81 mg PO DAILY #30 tabs 03/22/19 release triamcinolone acetonide 0.1 % 1 applic topical TID PRN 03/22/19 topical cream Rash/Topical Irritation omega-3 fatty acids 1,000 mg 1,000 mg PO DAILY 06/05/19 capsule (Fish Oil Concentrate) turmeric root extract 500 mg 1,000 mg PO BID 01/08/20 capsule atorvastatin 40 mg tablet 40 mg PO QHS #90 tabs 10/17/23 sennosides 8.6 mg tablet (senna) 8.6 mg PO BID 11/20/23 apixaban 5 mg tablet (Eliquis) 5 mg PO BID 12/29/23 cholecalciferol (vitamin D3) 75 75 mcg PO DAILY 12/29/23 mcg (3,000 unit) tablet docusate sodium 100 mg capsule 100 mg PO BID 12/29/23 dupilumab 300 mg/2 mL subcutaneous 300 mg subcut Q2W 12/29/23 pen injector (Dupixent) metoprolol succinate 25 mg 25 mg PO QPM 12/29/23 tablet,extended release 24 hr metoprolol succinate 50 mg 50 mg PO QAM 12/29/23 tablet,extended release 24 hr vit C 250 mg-vit E 90 mg-zinc 40 1 tab PO BID 12/29/23 mg-copper 1 [id number] capsule (PreserVision AREDS-2) Allergies Allergies lanolin Allergy (Severe, Verified 12/29/23 13:32) Rash mold Allergy (Verified 12/29/23 13:32) Unknown Penicillins Adverse Reaction (Verified 12/29/23 13:32) Swelling Sleep Disorder Evaluation Hx of Sleep Apnea: Yes Advanced Directives Advanced Directives 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 Living Will: Yes Advance Directives Information Provided: No Advance Directives on File: Yes DNR Order?:: No Past Medical History Covid-19 Screening Physicial Symptoms Other Clinical Concerns Exposure Risk Pertinent Comorbidities 65 years or older:: Yes Has a serious heart condition:: Yes Past Medical Illness Medical History Status post endoscopic repair of thoracic aortic aneurysm (TAA) Mitral valve insufficiency HLD (hyperlipidemia) Hypersomnia Atherosclerotic heart disease of [place] coronary artery without angina pectoris Thoracic aortic aneurysm without rupture Macular degeneration Bilateral carotid artery stenosis Psoriasis History of poliomyelitis DDD (degenerative disc disease) COPD (chronic obstructive pulmonary disease) BPH (benign prostatic hyperplasia) Essential hypertension Abnormal cardiac CT angiography Past Surgical History Surgical History S/P ascending aortic replacement History of repair of left rotator cuff S/P clubfoot release History of hernia repair Family History Summary Family History Father CAD (coronary artery disease) Hypertension Mother Hypertension Social History Smoking History Smoking Status: Former smoker Years Smokin Packs Smoked per Day: 1 (stopped 8 years ago) Hx Tobacco Use: Yes Alcohol Use Alcohol Usage: Yes (socially) Substance Abuse Hx Substance Use: No Occupation Occupation (List type of work in comments):: Retired Hobbies, Recreation, Social Activities Hobbies: Other ([employer], alevism) Recreational Activities: I am able to engage in all my recreational activities Social Environment Status Marital Status: Current Living Arrangements Living Environment:: Spouse Children How many children do you have?: 4 Do any of your children live nearby?: Yes Safety Do you feel safe in your surroundings?: Yes Assistance Do you need any assistance at home?: no Review of Systems Review of Systems Hints Review of Present Symptoms: Reports Shortness of Breath with Exertion, PVD, Angina, Dizziness/Lightheadedness, Heart Arrhythmia/Irregularities, Appetite - Normal, Appetite - Special Diet and Sleep - Normal; Denies Shortness of Breath at Rest, Operative Discomfort, Wound Healing, Fatigue or Sexual Changes Pain Is Patient Pain Free?: No Pain Location: back Pain Level: 3/10 Risk Factor Assessment Chief Complaint Chief Complaint: S/P Heart valve replacement Vital Signs Blood Pressure: 115/58 Pulse Pulse Rate: 77 Hypertension Blood Pressure Sitting - Left Arm: 115/58 Obesity Height: 5 ft 9 in Weight:: 181 lb Weight in Pounds: 181.0 lbs Body Mass Index (BMI): 26.7 Physical Inactivity Physical Inactivity: Reg Exercise 30 min/day (walking the dog) Risk Stratification Risk Guidelines: Moderate Risk: Risk Factor for Diabetes, Risk Factor for Obesity, Risk Factor for Sedentary Lifestyle and Risk Factor for Depression and Highest Risk: Risk Factor for Smoking, Risk Factor for Dyslipidemia and Risk Factor for Hypertension For Smoking Smoking Risk Guidelines For Dyslipidemia Dyslipidemia Risk Guidelines For Diabetes Mellitus Diabetes Risk Guidelines For Obesity/Overweight Obesity/Overweight Risk Guidelines For Hypertension Hypertension Risk Guidelines For Sedentary Lifestyle Sedentary Lifestyle Risk Guidelines For Depression Depression Risk Guidelines Family History Family History Father CAD (coronary artery disease) Hypertension Mother Hypertension Motivation Motivation to Participate On a scale of 1 to 10, how prepared are you to commit to attending program?: 10 What do you see as barriers to successfully being able to complete the program?: no What do you see as the benefits of succesfully completing the program? In other words, what do you hope to get out of participating in the program?: strength, weight loss Are there issues you are dealing with that will interfere with completing the program?: no Do you have a spouse or signficant other, family or friends who will help support you to complete the program?: yes
[2024-01-29 10:09] VITALS: BP 115/58; PULSE 77
--- NOTE | 2024-01-29 10:12 | PCM.CR.ITP ---
Diagnosis General Information Admitting Diagnosis: S/P Heart valve replacement Personal Learning Style:: Audio/Visual Stage of change r/t lifestyle modifications:: Contemplation Gave educational material for:: Treating Heart Disease, How The Heart Works, What it means to have Heart Disease, How Coronary Artery Disease is Diagnosed, Heart Procedures, What Heart Medications Do, Risk Factors & Modifications, Living an Active Life, Nutrition, Emotions & Heart Disease, Stress Management & Relaxation and Sleep Disorders & Heart Disease Education/Goals Cardiac Rehabilitation Goals Personal Goals: Initial Assessment: Improve energy level, Participate in home exercise program, Improve muscle strength and endurance, Improve diet and eating habits (eat healthier) and Control risk factors (learn risk factor modification) Scale for measuring improvement of personal goals Diagnosis & Disease Process Outcomes/Goals: Pt IDs own risk factors & lifestyle modifications by Session 10, Verbalizes symptoms of angina & response by session 3., Pt independently manages and Other Additional Outcomes/Goals: Plan/Interventions: Assist Pt to ID & engage in lifestyle modification to reduce CVD risk, Instruct on individual risk factors, Review symptoms of angina & emergency actions, Review secondary diagnosis & identify educational needs. and Other see comment 30 day Reassessments:: Not Met 30 day Reassessments:: Not Met 30 day Reassessments:: Not Met 30 day Reassessments:: Not Met Final Reassessments:: Not Met Exercise - Initial Assessment Visit Date of Eval: 01/29/24 (initial eval) Mets: Pre-: >3 METS for 30 minutes by discharge, >5 METS for 30 minutes by discharge, >7 METS for 30 minutes by discharge and Unable to meet goal due to: (see comment below) Physician Prescribed Exercise Modalities: Treadmill, Jelliinn Airdyne AD-7, SciFit Stepper, [employer] Pro-II Ergometer and [employer] Lateral [place] Frequency: 2x/week for 18 weeks [36 sessions] and 3x/week for 12 weeks [36 sessions] Intensity: 60-80% of age predicted maximum heart rate reserve Duration: 30 - 45 minutes Current METSs:: 3 Target Heart Rate:: 85-106 Resting Blood Pressure: 115/58 EKG Type: A-fib with RVR Outcomes & Goals Goals:: Verbalizes understanding of THR, RPE & goal METS by session 6, Documents in home exercise log/reports 30 min aerobic 5 day/wk by DC, Demonstrates accurate pulse taking by DC and Other additional outcome/goals: see below Intervention & Plan Exercise Program Goals: Instruct on personal THR & RPE, Instruct on MET level & personal MET goal, Show patient to take own pulse /validate performance until accurate, Instruct on home exercise and Other additional plan/int Physical Activity Home Exercise Physical Activity - Home Exercise: Safe Exercise, Warm-up, Self-monitoring, Cool-Down, Home Exercise > 30 min Daily and Sitting Time <3 hours/daily Outcomes & Goals Outcomes/Goals: Demonstrates correct Warm-up/exercise Cool-Down (S3) if = 2.5 METs, Verbalizes symptoms of exercise intolerance by Session 3 (S3), Demonstrate safe equipment use (S3) & follows exercise prescrition (6) and Other: See below Intervention & Plan Plan/Intervention: Instruct warm-up & cool-down if exercising at > 2 METs, Instruct on symptoms of exercise intolerance & actions to take, Instruct & monitor on saf, Assess intial functional capacity & safety risk and Other See below Nutrition - Initial Assessment Program Goals Nutrition Program Goals Patient has diagnosis of Hyperlipidemia (ICD E78)?: Yes Visit Date of Eval: 01/29/24 (initial eval ) Cholesterol/Lipids (Other Core Measures) Determine presence & major risk factors that modify LDL goal: Cigarette smoking, Hypertension or hypertensive medication, Low HDL cholesterol <40 mg/dL*, Family history of premature CHD in Male < 55 years: female <65 yearsFa and Age men > 45 years; women >/= 55 years Outcomes/Goals: Pt IDs own risk factors & lifestyle modifications by Session 10, Verbalizes symptoms of angina & response by session 3., Pt independently manages and Other Additional Outcomes/Goals: Intervention/Plan: Advocate for lipid panel cholesterol medication if applicable, Instruct on personal lipid levels & lipid goals/NCEP guidelines, Instruct on cholesterol and Other additional plan/int Referral to dietitian:: Yes Diabetes (Other Core Measures) Diabetes Type: Not Applicable Weight Mgt (Other Care) Height: 5 ft 9 in Weight:: 181 lb BMI: 26.7 Diagnosis Overweight/Obesity BMI> 30% ICD-10 E66: No Diagnosis High BMI/Morbid Obesity BMI> 35% ICD-10 Z68: No Outcomes/Goals: Pt sets, maintains & shows weight loss goal & trend during rehab and Other additional outcomes/goals Intervention/Plan: Instruct on ideal BMI & set weight loss goal w/patient, Assist pt to ID & incorporate diet changes for weight loss by S9, Refer to Structured Weight Loss program as appropriate, Encourage goal of using 250-300dcal per session for weight loss and Other additional plan/interventions Healthy Eating Habits Will attend diet classes:: Yes Outcomes/Goals:: Consume diet rich in vegs,fruits,whole grain/high fiber,fish,lean meat, Limit sat/trans fats,cholesterol & added salts & sugars and Other additional outcome/goals: Intervention/Plan:: Assess current eating habits and Other Additional plan/interventions Education Gave educational materials for:: Signs & symptoms of hypoglycemia, Signs & symptoms of hyperglycemia, Relate diabetes to coronary artery disease and Healthy eating Core - Initial Assessment Visit Date of Eval: 01/29/24 (initial eval ) Medication Compliance Preventative Medication(s):: Aspirin, Statin/lipid, Beta kylah and Eliquis H/O mental health issues: depression, anxiety, or addiction?: No Doesn?t believe in the benefits of treatment?: No Believes medications are unnecessary or harmful?: No Has a concern about medication side effects?: No Expresses concern over the cost of medications?: No Outcomes/Goals: Verbalizes medications,desired effect & common side effects @ DC, Pt self-reports following medication regimen, Keeps card in wallet w/medications listed by DC and Other additional outcome/goals: Interventions/plans: Instruct on medication effects & side effects, Review medication list w/patient every two weeks, Instruct importance of taking meds as ordered & assist problem solving and Other additional Tobacco Use Tobacco Use: Cigarettes How long ago did you quit using tobacco products?: Greater than or equal to 6 months ago Years Smokin Do you use smokeless tobacco?: No Hypertension Hypertension Diagnosis:: Hypertension ICD-10 I10 Resting Blood Pressure:: 115/58 [place] [employer] Hypertension Guidelines Outcomes/Goals: Able to verbalize/achieve optimal blood pressure <130/80, Incorporates diet changes & exercise for blood pressure control by DC and Other additional outcomes/goals Interventions/plan: Instruct on optimal blood pressure, hypertension & medications, Instruct on effects of sodium, alcohol, stress, exercise &hypertension and Other additional plan/interventions Tobacco Cessation Referral Smoking Cessation Referral:: No Individual Education/Counseling:: No Education Schedule Given:: Yes Psychosocial - Initial Assess VIsit Date of Eval: 01/29/24 (initial eval ) History of previous Mental disease:: No Target Goals Target Goals Outcomes/Goals: See list Psychosocial Outcomes/Goals:: ID's personal stressors & 2 strategies to manage stress by discharge and Other Additional outcome/goals: Intervention/Plan: See List Interventions/Plan:: Assess stressors,coping strategies & signs of derpression on admission, Instruct/assist pt to develop coping & personal stress Mgt strategies, Refer to Behavioral Health if appropriate, Refer to Physician if appropriate, Instruct patient to recognize signs & symptoms of depression, Instruct patient to recog and Other additional plan/intervention Patient Health Questionnaire PHQ-9 Screening Initial Assessment: 1. Little interest or pleasure in doing things: Not at all 2. Feeling down, depressed, or hopeless: Not at all 3. Trouble falling or staying asleep, or sleeping too much: Not at all 4. Feeling tired or having little energy: Not at all 5. Poor appetite or overeating: Several days 6. Feeling bad about yourself -- or that you are a failure or have let yourself or your family down: Not at all 7. Trouble concentrating on things, such as reading the newspaper or watching television: Not at all 8. Moving or speaking so slowly that other people could have noticed. Or the opposite - being so fidgety or restless that you have been moving around a lot more than usual: Not at all 9. Thoughts that you would be better off , or of hurting yourself in some way: Not at all How difficult have these problems made it for you to do your work, take care of things at home, or get along with other people?: Not difficult at all Total Score: 1 DILCIA-Q SV Test Statements CAD is a disease of the arteries in the heart: True Examples of risk factors for heart disease: True Angina is chest pain or discomfort: True The benefits of resistance training include: True Eating more meat and dairy products: False Anti-platelet medications such as aspirin are important: True The only effective way to manage stress: I Don't Know An exercise warm-up slowly increases heart rate: I Don't Know Prepared, processed foods usually have high sodium: True Depression is common after a heart attack: True The statin medications lower cholesterol: True To control blood pressure, lower the amount of sodium: True If someone gets chest discomfort during walking: False Transfats are partially hydrogenated vegetable oils: False Sleep apnea that is not treated increases the risk: False To control cholesterol, one should become a vegetarian: False Someone knows if he/she is exercising at the right level: I Don't Know Diabetes cannot be prevented with exercise & health eating: False Stress is a large risk for heart attack: True A diet that can help lower blood pressure is rich in: True Total Score Total Correct Responses: 15 Self-Efficacy 6-Item Scale Initial Assessment: We would like to know how confident you are in doing certain activities. Please select your confidence level for: Fatigue Select Number: 8 Physical Discomfort or Pain Select Number: 8 Emotional Distress Select Number: 10 Other Symptoms or Health Problems Select Number: 7 Different Tasks and Activities Select Number: 7 Medication Select Number: 7 Total Score:: 7 Nutrition Survey Nutrition Survey Instructions Scoring Instructions Nutrition Survey Initial: Have you lost >10 lbs over the past 2 months without trying?: Yes Are you following a special diet at home for diabetes, low fat, or low salt?: Yes Are you interested in meeting with a dietitian for help understanding your diet?: Yes Do you eat less than 3 meals a day?: Yes Do you eat fatty meats (majano, sausage, ribs, etc), fried foods, desserts, large amounts of salad dressings, margarine, butter, or cheese most days?: Yes Do you have food allergies? [Enter types in comment field]: Yes Do you eat in restaurants more than 3 times a week?: Yes Do you season food with salt, seasoning salt, or garlic salt?: No Do you used canned, boxed, frozen meals, or soups, seasoning packets?: Yes Total Score:: 8 Exercise - 30-day Assessment Physician Prescribed Exercise Modalities: Treadmill, [employer] AD-7, SciFit Stepper, SciFit Pro-II Ergometer and [employer] Lateral Dehydrator Tender Exercise - 60-day Assessment Physician Prescribed Exercise Modalities: Treadmill, [employer] AD-7, SciFit Stepper, SciFit Pro-II Ergometer and [employer] Lateral Dehydrator Tender Exercise - 90-day Assessment Physician Prescribed Exercise Modalities: Treadmill, [employer] AD-7, SciFit Stepper, SciFit Pro-II Ergometer and [employer] Lateral [place] Exercise - Final/Discharge Physician Prescribed Exercise Modalities: Treadmill, [employer] AD-7, SciFit Stepper, SciFit Pro-II Ergometer and [employer] Lateral Dehydrator Tender Frequency: 2x/week for 18 weeks [36 sessions] and 3x/week for 12 weeks [36 sessions] Intensity: 60-80% of age predicted maximum heart rate reserve Current METSs:: 3 Target Heart Rate:: 85-106 Nutrition - 30-Day Assessment Weight Mgt (Other Care) Height: 5 ft 9 in Weight:: 181 lb BMI: 26.7 Nutrition - 60-Day Assessment Weight Mgt (Other Care) Height: 5 ft 9 in Weight:: 181 lb BMI: 26.7 Core - 30-Day Assessment Tobacco Use Years Smokin Core - Final Assessment Hypertension Resting Blood Pressure:: 115/58 [place] [employer] Hypertension Guidelines Core - 60-Day Assessment Hypertension Resting Blood Pressure:: 115/58 [place] [employer] Hypertension Guidelines Psychosocial - 30-Day Assess Target Goals Target Goals Psychosocial - 60-Day Assess Target Goals Target Goals Psychosocial - 90-Day Assess Target Goals Target Goals Psychosocial - Final Assessmen Target Goals Target Goals Nutrition - 90-Day Assessment Weight Mgt (Other Care) Height: 5 ft 9 in Weight:: 181 lb BMI: 26.7 Nutrition - Final Assessment Program Goals Patient has diagnosis of Hyperlipidemia (ICD E78)?: Yes Weight Mgt (Other Care) Height: 5 ft 9 in Weight:: 181 lb BMI: 26.7
[2024-01-29 10:21] VITALS: BP 115/58
[2024-01-29 10:32] VITALS: BMI 26.7
[2024-01-29 10:56] VITALS: BMI 26.7
== END | disposition home or self-care (01) ==
LOC: CR 09:56
PROVIDERS: PCP Family Medicine; Referring Provider Internal Medicine Cardiovascular Disease; Visit Provider Internal Medicine Cardiovascular Disease
DX: Z95.828 Presence of other vascular implants and grafts (principal)

== ENCOUNTER 2024-02-19 09:30 | Outpatient (RCR) | payer MEDICARE, OTHER, SELFPAY ==
[2024-01-29 10:56] VITALS: BMI 26.7
== END 2024-02-21 23:59 ==
LOC: CR 09:30
PROVIDERS: PCP Family Medicine; Referring Provider Internal Medicine Cardiovascular Disease; Visit Provider Internal Medicine Cardiovascular Disease
DX: Z95.4 Presence of other heart-valve replacement (principal)
CPT/HCPCS: 93798

== ENCOUNTER 2024-03-22 09:30 | Outpatient (RCR) | payer MEDICARE, OTHER, SELFPAY ==
[2024-01-29 10:56] VITALS: BMI 26.7
--- NOTE | 2024-02-29 07:23 | PCM.CR.ITP ---
Exercise - Initial Assessment Visit Session #:: 12 Physician Prescribed Exercise Modalities: Treadmill, SciFit Stepper and SciFit Pro-II Ergometer Nutrition - Initial Assessment Weight Mgt (Other Care) Height: 5 ft 9 in Weight:: 182 lb 8 oz BMI: 26.9 Core - Initial Assessment Tobacco Use Years Smokin Psychosocial - Initial Assess Target Goals Target Goals Patient Health Questionnaire PHQ-9 Screening 30-Day Re-eval Assessment: 1. Little interest or pleasure in doing things: Not at all 2. Feeling down, depressed, or hopeless: Not at all 3. Trouble falling or staying asleep, or sleeping too much: Not at all 4. Feeling tired or having little energy: Not at all 5. Poor appetite or overeating: Several days 6. Feeling bad about yourself -- or that you are a failure or have let yourself or your family down: Not at all 7. Trouble concentrating on things, such as reading the newspaper or watching television: Not at all 8. Moving or speaking so slowly that other people could have noticed. Or the opposite - being so fidgety or restless that you have been moving around a lot more than usual: Not at all 9. Thoughts that you would be better off , or of hurting yourself in some way: Not at all How difficult have these problems made it for you to do your work, take care of things at home, or get along with other people?: Not difficult at all Total Score: 1 Self-Efficacy 6-Item Scale 30-Day Re-eval Assessment: We would like to know how confident you are in doing certain activities. Please select your confidence level for: Fatigue Select Number: 8 Physical Discomfort or Pain Select Number: 8 Emotional Distress Select Number: 10 Other Symptoms or Health Problems Select Number: 7 Different Tasks and Activities Select Number: 7 Medication Select Number: 7 Total Score:: 7 Nutrition Survey Nutrition Survey Instructions Scoring Instructions Exercise - 30-day Assessment Visit Date of Eval: 02/29/24 Session #:: 12 Physician Prescribed Exercise Modalities: Treadmill, SciFit Stepper and SciFit Pro-II Ergometer Frequency: 3x/week for 12 weeks [36 sessions] Intensity: 60-80% of age predicted maximum heart rate reserve Duration: 30 - 45 minutes Current METSs:: 3.8 Target Heart Rate:: 85-106 Current RPE:: 11.5-13 Maximum Excercise HR:: 114 Resting Blood Pressure: 128/58 Maximum Exercise Blood Pressure: 154/80 EKG Type: NSR to ST with rare pac and pvc Outcomes & Goals Goals:: Verbalizes understanding of THR, RPE & goal METS by session 6, Documents in home exercise log/reports 30 min aerobic 5 day/wk by DC, Demonstrates accurate pulse taking by DC and Other additional outcome/goals: see below Intervention & Plan Exercise Program Goals: Instruct on personal THR & RPE, Instruct on MET level & personal MET goal, Show patient to take own pulse /validate performance until accurate, Instruct on home exercise and Other additional plan/int 30-day Reassessments 30 day Reassessments:: Progressing Reassessment Notes & Comments:: RPE explained Physical Activity Home Exercise Physical Activity - Home Exercise: Safe Exercise, Warm-up, Self-monitoring, Cool-Down, Home Exercise > 30 min Daily and Sitting Time <3 hours/daily Outcomes & Goals Outcomes/Goals: Demonstrates correct Warm-up/exercise Cool-Down (S3) if = 2.5 METs, Verbalizes symptoms of exercise intolerance by Session 3 (S3), Demonstrate safe equipment use (S3) & follows exercise prescrition (6) and Other: See below Intervention & Plan Plan/Intervention: Instruct warm-up & cool-down if exercising at > 2 METs, Instruct on symptoms of exercise intolerance & actions to take, Instruct & monitor on saf, Assess intial functional capacity & safety risk and Other See below 30-day Reassessments 30 day Reassessments:: Progressing Reassessment Notes & Comments:: warm up encouraged Exercise - 60-day Assessment Physician Prescribed Exercise Modalities: Treadmill, SciFit Stepper and SciFit Pro-II Ergometer Exercise - 90-day Assessment Physician Prescribed Exercise Modalities: Treadmill, SciFit Stepper and SciFit Pro-II Ergometer Exercise - Final/Discharge Physician Prescribed Exercise Modalities: Treadmill, SciFit Stepper and SciFit Pro-II Ergometer Nutrition - 30-Day Assessment Program Goals Nutrition Program Goals Patient has diagnosis of Hyperlipidemia (ICD E78)?: Yes Visit Date of Eval: 02/29/24 Session #:: 12 Cholesterol/Lipids (Other Core Measures) Determine presence & major risk factors that modify LDL goal: Hypertension or hypertensive medication, Low HDL cholesterol <40 mg/dL*, Family history of premature CHD in Male < 55 years: female <65 yearsFa and Age men > 45 years; women >/= 55 years Outcomes/Goals: Pt IDs own risk factors & lifestyle modifications by Session 10, Verbalizes symptoms of angina & response by session 3., Pt independently manages and Other Additional Outcomes/Goals: Intervention/Plan: Advocate for lipid panel cholesterol medication if applicable, Instruct on personal lipid levels & lipid goals/NCEP guidelines, Instruct on cholesterol and Other additional plan/int Referral to dietitian:: Yes 30-day Reassessments:: Progressing Reassessment Notes & Comments:: pt to meet with dietitian Diabetes (Other Core Measures) Diabetes Type: Not Applicable Weight Mgt (Other Care) Height: 5 ft 9 in Weight:: 182 lb 8 oz BMI: 26.9 Diagnosis Overweight/Obesity BMI> 30% ICD-10 E66: No Diagnosis High BMI/Morbid Obesity BMI> 35% ICD-10 Z68: No Outcomes/Goals: Pt sets, maintains & shows weight loss goal & trend during rehab and Other additional outcomes/goals Intervention/Plan: Instruct on ideal BMI & set weight loss goal w/patient, Assist pt to ID & incorporate diet changes for weight loss by S9, Refer to Structured Weight Loss program as appropriate, Encourage goal of using 250-300dcal per session for weight loss and Other additional plan/interventions 30 day Reassessments:: Progressing Reassessment Notes & Comments:: pt to attend nutrition class Healthy Eating Habits Will attend diet classes:: Yes Outcomes/Goals:: Consume diet rich in vegs,fruits,whole grain/high fiber,fish,lean meat, Limit sat/trans fats,cholesterol & added salts & sugars and Other additional outcome/goals: Intervention/Plan:: Assess current eating habits and Other Additional plan/interventions 30-day Reassessments:: Progressing Reassessment Notes & Comments:: pt to attend nutrition class Education Gave educational materials for:: Signs & symptoms of hypoglycemia, Signs & symptoms of hyperglycemia, Relate diabetes to coronary artery disease and Healthy eating Nutrition - 60-Day Assessment Weight Mgt (Other Care) Height: 5 ft 9 in Weight:: 182 lb 8 oz BMI: 26.9 Core - 30-Day Assessment Visit Date of Eval: 02/29/24 Session #:: 12 Medication Compliance Preventative Medication(s):: Aspirin, Statin/lipid, Beta kylah and Eliquis H/O mental health issues: depression, anxiety, or addiction?: No Doesn?t believe in the benefits of treatment?: No Believes medications are unnecessary or harmful?: No Has a concern about medication side effects?: No Expresses concern over the cost of medications?: No Outcomes/Goals: Verbalizes medications,desired effect & common side effects @ DC, Pt self-reports following medication regimen, Keeps card in wallet w/medications listed by DC and Other additional outcome/goals: Interventions/plans: Instruct on medication effects & side effects, Review medication list w/patient every two weeks, Instruct importance of taking meds as ordered & assist problem solving and Other additional 30-day Reassessments:: Progressing Reassessment Notes & Comments:: pt encouraged to take his meds Tobacco Use Tobacco Use: Cigarettes How long ago did you quit using tobacco products?: Greater than or equal to 6 months ago Years Smokin Outcomes/Goals: Smoking cessation achieved or maintained by discharge, Identify aids/strategies for achieving smoking cessation by session 6 and Other additional outcome/goals Interventions/plan: Instruct on effects of smoking & provide smoking cessation resource, Assist pt to set quit date & provide encouragement, Assist pt to develop strategies to achieve/maintain quit date, Assist pt w/nicotine replacement & medication for cessation success and Other additional plan/interventions 30-day Reassessments:: Met Hypertension Hypertension Diagnosis:: Hypertension ICD-10 I10 Resting Blood Pressure:: 128/58 [place] [employer] Hypertension Guidelines Peak Exercise Blood Pressure:: 154/80 Outcomes/Goals: Able to verbalize/achieve optimal blood pressure <130/80, Incorporates diet changes & exercise for blood pressure control by DC and Other additional outcomes/goals Interventions/plan: Instruct on optimal blood pressure, hypertension & medications, Instruct on effects of sodium, alcohol, stress, exercise &hypertension and Other additional plan/interventions 30 day Reassessments:: Progressing Reassessment Notes & Comments:: pt's BP's are improving Tobacco Cessation Referral Smoking Cessation Referral:: No Individual Education/Counseling:: No Education Schedule Given:: Yes Psychosocial - 30-Day Assess VIsit Date of Eval: 02/29/24 Session #:: 12 History of previous Mental disease:: No Target Goals Target Goals Outcomes/Goals: See list Psychosocial Outcomes/Goals:: ID's personal stressors & 2 strategies to manage stress by discharge and Other Additional outcome/goals: Intervention/Plan: See List Interventions/Plan:: Assess stressors,coping strategies & signs of derpression on admission, Instruct/assist pt to develop coping & personal stress Mgt strategies, Refer to Behavioral Health if appropriate, Refer to Physician if appropriate, Instruct patient to recognize signs & symptoms of depression, Instruct patient to recog and Other additional plan/intervention 30-day Reassessments: 30 day Reassessments:: Met Psychosocial - 60-Day Assess Target Goals Target Goals Outcomes/Goals: See list Psychosocial Outcomes/Goals:: ID's personal stressors & 2 strategies to manage stress by discharge and Other Additional outcome/goals: Psychosocial - 90-Day Assess Target Goals Target Goals Psychosocial - Final Assessmen Target Goals Target Goals Nutrition - 90-Day Assessment Weight Mgt (Other Care) Height: 5 ft 9 in Weight:: 182 lb 8 oz BMI: 26.9 Nutrition - Final Assessment Weight Mgt (Other Care) Height: 5 ft 9 in Weight:: 182 lb 8 oz BMI: 26.9
[2024-02-29 07:38] VITALS: BP 128/58; BMI 26.9
== END 2024-03-23 23:59 ==
LOC: CR 09:30
PROVIDERS: PCP Family Medicine; Referring Provider Internal Medicine Cardiovascular Disease; Visit Provider Internal Medicine Cardiovascular Disease
DX: Z95.4 Presence of other heart-valve replacement (principal)
CPT/HCPCS: 93798

== ENCOUNTER 2024-04-22 09:30 | Outpatient (RCR) | payer MEDICARE, OTHER, SELFPAY ==
[2024-02-29 07:38] VITALS: BMI 26.9
[2024-03-24 00:52] VITALS: BP 128/58
--- NOTE | 2024-03-29 07:15 | PCM.CR.ITP ---
Exercise - Initial Assessment Physician Prescribed Exercise Modalities: Treadmill, SciFit Stepper and SciFit Pro-II Ergometer Nutrition - Initial Assessment Weight Mgt (Other Care) Height: 5 ft 9 in Weight:: 179 lb BMI: 26.4 Psychosocial - Initial Assess Target Goals Target Goals Patient Health Questionnaire PHQ-9 Screening 60-Day Re-eval Assessment: 1. Little interest or pleasure in doing things: Not at all 2. Feeling down, depressed, or hopeless: Not at all 3. Trouble falling or staying asleep, or sleeping too much: Not at all 4. Feeling tired or having little energy: Not at all 5. Poor appetite or overeating: Several days 6. Feeling bad about yourself -- or that you are a failure or have let yourself or your family down: Not at all 7. Trouble concentrating on things, such as reading the newspaper or watching television: Not at all 8. Moving or speaking so slowly that other people could have noticed. Or the opposite - being so fidgety or restless that you have been moving around a lot more than usual: Not at all 9. Thoughts that you would be better off , or of hurting yourself in some way: Not at all How difficult have these problems made it for you to do your work, take care of things at home, or get along with other people?: Not difficult at all Total Score: 1 Self-Efficacy 6-Item Scale 60-Day Re-eval Assessment: We would like to know how confident you are in doing certain activities. Please select your confidence level for: Fatigue Select Number: 8 Physical Discomfort or Pain Select Number: 8 Emotional Distress Select Number: 10 Other Symptoms or Health Problems Select Number: 7 Different Tasks and Activities Select Number: 7 Medication Select Number: 7 Total Score:: 7 Nutrition Survey Nutrition Survey Instructions Scoring Instructions Exercise - 30-day Assessment Physician Prescribed Exercise Modalities: Treadmill, SciFit Stepper and SciFit Pro-II Ergometer Exercise - 60-day Assessment Visit Date of Eval: 03/29/24 Session #:: 21 Physician Prescribed Exercise Modalities: Treadmill, SciFit Stepper and SciFit Pro-II Ergometer Frequency: 3x/week for 12 weeks [36 sessions] Intensity: 60-80% of age predicted maximum heart rate reserve Duration: 30 - 45 minutes Current METSs:: 4.4 Target Heart Rate:: 92-112 Current RPE:: 12-13 Maximum Excercise HR:: 85 Resting Blood Pressure: 112/60 Maximum Exercise Blood Pressure: 130/58 EKG Type: NSR to ST with rare pac, pvc Outcomes & Goals Goals:: Verbalizes understanding of THR, RPE & goal METS by session 6, Documents in home exercise log/reports 30 min aerobic 5 day/wk by DC, Demonstrates accurate pulse taking by DC and Other additional outcome/goals: see below Intervention & Plan Exercise Program Goals: Instruct on personal THR & RPE, Instruct on MET level & personal MET goal, Show patient to take own pulse /validate performance until accurate, Instruct on home exercise and Other additional plan/int 30-day Reassessments 30 day Reassessments:: Progressing Reassessment Notes & Comments:: THR explained Physical Activity Home Exercise Physical Activity - Home Exercise: Safe Exercise, Warm-up, Self-monitoring, Cool-Down, Home Exercise > 30 min Daily and Sitting Time <3 hours/daily Outcomes & Goals Outcomes/Goals: Demonstrates correct Warm-up/exercise Cool-Down (S3) if = 2.5 METs, Verbalizes symptoms of exercise intolerance by Session 3 (S3), Demonstrate safe equipment use (S3) & follows exercise prescrition (6) and Other: See below Intervention & Plan Plan/Intervention: Instruct warm-up & cool-down if exercising at > 2 METs, Instruct on symptoms of exercise intolerance & actions to take, Instruct & monitor on saf, Assess intial functional capacity & safety risk and Other See below 30-day Reassessments 30 day Reassessments:: Progressing Reassessment Notes & Comments:: proper cool down encouraged and explained Exercise - 90-day Assessment Physician Prescribed Exercise Modalities: Treadmill, SciFit Stepper and SciFit Pro-II Ergometer Exercise - Final/Discharge Physician Prescribed Exercise Modalities: Treadmill, SciFit Stepper and SciFit Pro-II Ergometer Nutrition - 30-Day Assessment Weight Mgt (Other Care) Height: 5 ft 9 in Weight:: 179 lb BMI: 26.4 Nutrition - 60-Day Assessment Program Goals Nutrition Program Goals Patient has diagnosis of Hyperlipidemia (ICD E78)?: Yes Visit Date of Eval: 03/29/24 Session #:: 21 Cholesterol/Lipids (Other Core Measures) Determine presence & major risk factors that modify LDL goal: Hypertension or hypertensive medication, Low HDL cholesterol <40 mg/dL*, Family history of premature CHD in Male < 55 years: female <65 yearsFa and Age men > 45 years; women >/= 55 years Outcomes/Goals: Pt IDs own risk factors & lifestyle modifications by Session 10, Verbalizes symptoms of angina & response by session 3., Pt independently manages and Other Additional Outcomes/Goals: Intervention/Plan: Advocate for lipid panel cholesterol medication if applicable, Instruct on personal lipid levels & lipid goals/NCEP guidelines, Instruct on cholesterol and Other additional plan/int 30-day Reassessments:: Progressing Reassessment Notes & Comments:: pt has met with dietitian Diabetes (Other Core Measures) Diabetes Type: Not Applicable Weight Mgt (Other Care) Height: 5 ft 9 in Weight:: 179 lb BMI: 26.4 Diagnosis Overweight/Obesity BMI> 30% ICD-10 E66: No Diagnosis High BMI/Morbid Obesity BMI> 35% ICD-10 Z68: No Outcomes/Goals: Pt sets, maintains & shows weight loss goal & trend during rehab and Other additional outcomes/goals Intervention/Plan: Instruct on ideal BMI & set weight loss goal w/patient, Assist pt to ID & incorporate diet changes for weight loss by S9, Refer to Structured Weight Loss program as appropriate, Encourage goal of using 250-300dcal per session for weight loss and Other additional plan/interventions 30 day Reassessments:: Progressing Reassessment Notes & Comments:: pt has lost 3 more lbs Healthy Eating Habits Will attend diet classes:: Yes Outcomes/Goals:: Consume diet rich in vegs,fruits,whole grain/high fiber,fish,lean meat, Limit sat/trans fats,cholesterol & added salts & sugars and Other additional outcome/goals: Intervention/Plan:: Assess current eating habits and Other Additional plan/interventions 30-day Reassessments:: Progressing Reassessment Notes & Comments:: pt has attended nutrition class Education Gave educational materials for:: Signs & symptoms of hypoglycemia, Signs & symptoms of hyperglycemia, Relate diabetes to coronary artery disease and Healthy eating Core - 60-Day Assessment Visit Date of Eval: 03/29/24 Session #:: 21 Medication Compliance Preventative Medication(s):: Aspirin, Statin/lipid, Beta kylah and Eliquis H/O mental health issues: depression, anxiety, or addiction?: No Doesn?t believe in the benefits of treatment?: No Believes medications are unnecessary or harmful?: No Has a concern about medication side effects?: No Expresses concern over the cost of medications?: No Outcomes/Goals: Verbalizes medications,desired effect & common side effects @ DC, Pt self-reports following medication regimen, Keeps card in wallet w/medications listed by DC and Other additional outcome/goals: Interventions/plans: Instruct on medication effects & side effects, Review medication list w/patient every two weeks, Instruct importance of taking meds as ordered & assist problem solving and Other additional 30-day Reassessments:: Progressing Reassessment Notes & Comments:: pt taking his meds as prescribed Tobacco Use Tobacco Use: Non-smoker Hypertension Hypertension Diagnosis:: Hypertension ICD-10 I10 Resting Blood Pressure:: 112/60 [place] [employer] Hypertension Guidelines Peak Exercise Blood Pressure:: 130/58 Outcomes/Goals: Able to verbalize/achieve optimal blood pressure <130/80, Incorporates diet changes & exercise for blood pressure control by DC and Other additional outcomes/goals Interventions/plan: Instruct on optimal blood pressure, hypertension & medications, Instruct on effects of sodium, alcohol, stress, exercise &hypertension and Other additional plan/interventions 30 day Reassessments:: Met Reassessment Notes & Comments:: bp's within normal limits Tobacco Cessation Referral Smoking Cessation Referral:: No Individual Education/Counseling:: No Education Schedule Given:: Yes Psychosocial - 30-Day Assess Target Goals Target Goals Outcomes/Goals: See list Psychosocial Outcomes/Goals:: ID's personal stressors & 2 strategies to manage stress by discharge and Other Additional outcome/goals: Psychosocial - 60-Day Assess VIsit Date of Eval: 03/29/24 Session #:: 21 History of previous Mental disease:: No Target Goals Target Goals Outcomes/Goals: See list Psychosocial Outcomes/Goals:: ID's personal stressors & 2 strategies to manage stress by discharge and Other Additional outcome/goals: Intervention/Plan: See List Interventions/Plan:: Assess stressors,coping strategies & signs of derpression on admission, Instruct/assist pt to develop coping & personal stress Mgt strategies, Refer to Behavioral Health if appropriate, Refer to Physician if appropriate, Instruct patient to recognize signs & symptoms of depression, Instruct patient to recog and Other additional plan/intervention 30-day Reassessments: 30 day Reassessments:: Met Psychosocial - 90-Day Assess Target Goals Target Goals Psychosocial - Final Assessmen Target Goals Target Goals Nutrition - 90-Day Assessment Weight Mgt (Other Care) Height: 5 ft 9 in Weight:: 179 lb BMI: 26.4 Nutrition - Final Assessment Weight Mgt (Other Care) Height: 5 ft 9 in Weight:: 179 lb BMI: 26.4
[2024-03-29 07:24] VITALS: BP 112/60; BMI 26.4
== END 2024-04-22 23:59 ==
LOC: CR 09:30
PROVIDERS: PCP Family Medicine; Referring Provider Internal Medicine Cardiovascular Disease; Visit Provider Internal Medicine Cardiovascular Disease
DX: Z95.4 Presence of other heart-valve replacement (principal)
CPT/HCPCS: 93798; 97802

== ENCOUNTER 2024-05-03 09:30 | Outpatient (RCR) | payer MEDICARE, OTHER, SELFPAY ==
[2024-04-23 00:22] VITALS: BP 112/60; BP 128/58; BMI 26.9
--- NOTE | 2024-04-30 06:58 | CR.ITP_ITS ---
Exercise - Initial Assessment Physician Prescribed Exercise Modalities: Treadmill, SciFit Stepper and SciFit Pro-II Ergometer Nutrition - Initial Assessment Weight Mgt (Other Care) Height: 5 ft 9 in Weight:: 183 lb 8 oz BMI: 27.1 Psychosocial - Initial Assess Target Goals Target Goals Referral to Behavioral Health PS - Interventions: Yes: Attend Stress Management Classes Patient Health Questionnaire PHQ-9 Screening 90-Day Re-eval Assessment: 1. Little interest or pleasure in doing things: Not at all 2. Feeling down, depressed, or hopeless: Not at all 3. Trouble falling or staying asleep, or sleeping too much: Not at all 4. Feeling tired or having little energy: Not at all 5. Poor appetite or overeating: Several days 6. Feeling bad about yourself -- or that you are a failure or have let yourself or your family down: Not at all 7. Trouble concentrating on things, such as reading the newspaper or watching television: Not at all 8. Moving or speaking so slowly that other people could have noticed. Or the opposite - being so fidgety or restless that you have been moving around a lot more than usual: Not at all 9. Thoughts that you would be better off , or of hurting yourself in some way: Not at all How difficult have these problems made it for you to do your work, take care of things at home, or get along with other people?: Not difficult at all Total Score: 1 Self-Efficacy 6-Item Scale 90-Day Re-eval Assessment: We would like to know how confident you are in doing certain activities. Please select your confidence level for: Fatigue Select Number: 8 Physical Discomfort or Pain Select Number: 8 Emotional Distress Select Number: 10 Other Symptoms or Health Problems Select Number: 7 Different Tasks and Activities Select Number: 7 Medication Select Number: 7 Total Score:: 7 Nutrition Survey Nutrition Survey Instructions Scoring Instructions Exercise - 30-day Assessment Physician Prescribed Exercise Modalities: Treadmill, SciFit Stepper and SciFit Pro-II Ergometer Exercise - 60-day Assessment Physician Prescribed Exercise Modalities: Treadmill, SciFit Stepper and SciFit Pro-II Ergometer Exercise - 90-day Assessment Visit Date of Eval: 04/30/24 Session #:: 35 Physician Prescribed Exercise Modalities: Treadmill, SciFit Stepper and SciFit Pro-II Ergometer Frequency: 3x/week for 12 weeks [36 sessions] Intensity: 60-80% of age predicted maximum heart rate reserve Duration: 30 - 45 minutes Current METSs:: 5.7 Target Heart Rate:: 92-112 Current RPE:: 12-13 Maximum Excercise HR:: 120 Resting Blood Pressure: 120/62 Maximum Exercise Blood Pressure: 152/82 EKG Type: NSR to ST with a rare PAC Outcomes & Goals Goals:: Verbalizes understanding of THR, RPE & goal METS by session 6, Documents in home exercise log/reports 30 min aerobic 5 day/wk by DC, Demonstrates accurate pulse taking by DC and Other additional outcome/goals: see below Intervention & Plan Exercise Program Goals: Instruct on personal THR & RPE, Instruct on MET level & personal MET goal, Show patient to take own pulse /validate performance until accurate, Instruct on home exercise and Other additional plan/int 30-day Reassessments 30 day Reassessments:: Met Physical Activity Home Exercise Physical Activity - Home Exercise: Safe Exercise, Warm-up, Self-monitoring, Cool-Down, Home Exercise > 30 min Daily and Sitting Time <3 hours/daily Outcomes & Goals Outcomes/Goals: Demonstrates correct Warm-up/exercise Cool-Down (S3) if = 2.5 METs, Verbalizes symptoms of exercise intolerance by Session 3 (S3), Demonstrate safe equipment use (S3) & follows exercise prescrition (6) and Other: See below Intervention & Plan Plan/Intervention: Instruct warm-up & cool-down if exercising at > 2 METs, Instruct on symptoms of exercise intolerance & actions to take, Instruct & monitor on saf, Assess intial functional capacity & safety risk and Other See below 30-day Reassessments 30 day Reassessments:: Met Exercise - Final/Discharge Physician Prescribed Exercise Modalities: Treadmill, SciFit Stepper and SciFit Pro-II Ergometer Nutrition - 30-Day Assessment Weight Mgt (Other Care) Height: 5 ft 9 in Weight:: 183 lb 8 oz BMI: 27.1 Nutrition - 60-Day Assessment Weight Mgt (Other Care) Height: 5 ft 9 in Weight:: 183 lb 8 oz BMI: 27.1 Core - 90 Day Assessment Visit Date of Eval: 04/30/24 Session #:: 35 Medication Compliance Preventative Medication(s):: Aspirin, Statin/lipid, Beta kylah and Eliquis H/O mental health issues: depression, anxiety, or addiction?: No Doesn?t believe in the benefits of treatment?: No Believes medications are unnecessary or harmful?: No Has a concern about medication side effects?: No Expresses concern over the cost of medications?: No Outcomes/Goals: Verbalizes medications,desired effect & common side effects @ DC, Pt self-reports following medication regimen, Keeps card in wallet w/medications listed by DC and Other additional outcome/goals: Interventions/plans: Instruct on medication effects & side effects, Review medication list w/patient every two weeks, Instruct importance of taking meds as ordered & assist problem solving and Other additional 30-day Reassessments:: Met Tobacco Use Tobacco Use: Non-smoker Hypertension Hypertension Diagnosis:: Hypertension ICD-10 I10 Resting Blood Pressure:: 120/62 [place] [employer] Hypertension Guidelines Peak Exercise Blood Pressure:: 152/82 Outcomes/Goals: Able to verbalize/achieve optimal blood pressure <130/80, Incorporates diet changes & exercise for blood pressure control by DC and Other additional outcomes/goals Interventions/plan: Instruct on optimal blood pressure, hypertension & medications, Instruct on effects of sodium, alcohol, stress, exercise &hypertension and Other additional plan/interventions 30 day Reassessments:: Met Tobacco Cessation Referral Smoking Cessation Referral:: No Individual Education/Counseling:: No Education Schedule Given:: Yes Psychosocial - 30-Day Assess Target Goals Target Goals Referral to Behavioral Health PS - Interventions: Yes: Attend Stress Management Classes Psychosocial - 60-Day Assess Target Goals Target Goals Referral to Behavioral Health PS - Interventions: Yes: Attend Stress Management Classes Psychosocial - 90-Day Assess VIsit Date of Eval: 04/30/24 Session #:: 35 History of previous Mental disease:: No Target Goals Target Goals Psychosocial Test Tool Used:: LIKECHARITY QOL Cardiac and PHQ-9 Questionnaire phq-9 Severity Referral to Behavioral Health PS - Interventions: Yes: Attend Stress Management Classes Outcomes/Goals: See list Psychosocial Outcomes/Goals:: ID's personal stressors & 2 strategies to manage stress by discharge and Other Additional outcome/goals: Intervention/Plan: See List Interventions/Plan:: Assess stressors,coping strategies & signs of derpression on admission, Instruct/assist pt to develop coping & personal stress Mgt strategies, Refer to Behavioral Health if appropriate, Refer to Physician if appropriate, Instruct patient to recognize signs & symptoms of depression, Instruct patient to recog and Other additional plan/intervention 30-day Reassessments: 30 day Reassessments:: Met Psychosocial - Final Assessmen Target Goals Target Goals Referral to Behavioral Health PS - Interventions: Yes: Attend Stress Management Classes Nutrition - 90-Day Assessment Program Goals Nutrition Program Goals Patient has diagnosis of Hyperlipidemia (ICD E78)?: Yes Visit Date of Eval: 04/30/24 Session #:: 35 Cholesterol/Lipids (Other Core Measures) Determine presence & major risk factors that modify LDL goal: Hypertension or hypertensive medication, Low HDL cholesterol <40 mg/dL*, Family history of premature CHD in Male < 55 years: female <65 yearsFa and Age men > 45 years; women >/= 55 years Outcomes/Goals: Pt IDs own risk factors & lifestyle modifications by Session 10, Verbalizes symptoms of angina & response by session 3., Pt independently manages and Other Additional Outcomes/Goals: Intervention/Plan: Advocate for lipid panel cholesterol medication if applicable, Instruct on personal lipid levels & lipid goals/NCEP guidelines, Instruct on cholesterol and Other additional plan/int 30-day Reassessments:: Met Reassessment Notes & Comments:: pt has met with dietitian Diabetes (Other Core Measures) Diabetes Type: Not Applicable Weight Mgt (Other Care) Height: 5 ft 9 in Weight:: 183 lb 8 oz BMI: 27.1 Diagnosis Overweight/Obesity BMI> 30% ICD-10 E66: No Diagnosis High BMI/Morbid Obesity BMI> 35% ICD-10 Z68: No Outcomes/Goals: Pt sets, maintains & shows weight loss goal & trend during rehab and Other additional outcomes/goals Intervention/Plan: Instruct on ideal BMI & set weight loss goal w/patient, Assist pt to ID & incorporate diet changes for weight loss by S9, Refer to Structured Weight Loss program as appropriate, Encourage goal of using 250- 300dcal per session for weight loss and Other additional plan/interventions 30 day Reassessments:: Met Healthy Eating Habits Will attend diet classes:: Yes Outcomes/Goals:: Consume diet rich in vegs,fruits,whole grain/high fiber,fish,lean meat, Limit sat/trans fats,cholesterol & added salts & sugars and Other additional outcome/goals: Intervention/Plan:: Assess current eating habits and Other Additional plan/interventions 30-day Reassessments:: Met Education Gave educational materials for:: Signs & symptoms of hypoglycemia, Signs & symptoms of hyperglycemia, Relate diabetes to coronary artery disease and Healthy eating Nutrition - Final Assessment Weight Mgt (Other Care) Height: 5 ft 9 in Weight:: 183 lb 8 oz BMI: 27.1
[2024-04-30 07:06] VITALS: BP 120/62; BMI 27.1
== END 2024-05-23 23:59 ==
LOC: CR 09:30
PROVIDERS: PCP Family Medicine; Referring Provider Internal Medicine Cardiovascular Disease; Visit Provider Internal Medicine Cardiovascular Disease
DX: Z95.4 Presence of other heart-valve replacement (principal)
CPT/HCPCS: 93798

== ENCOUNTER → 2024-06-06 | Outpatient (CLI) | payer MEDICARE, OTHER, SELFPAY ==
[2024-05-29 11:21] VITALS: BMI 27.1
== END | disposition home or self-care (01) ==
LOC: SL 11:49
PROVIDERS: PCP Family Medicine; Referring Provider Nurse Practitioner Acute Care; Visit Provider Nurse Practitioner Acute Care
DX: G47.33 Obstructive sleep apnea (adult) (pediatric) (principal)
CPT/HCPCS: 98960; G0463

== ENCOUNTER → 2024-10-30 | Outpatient (CLI) | payer MEDICARE, SELFPAY ==
[2024-05-29 11:21] VITALS: BMI 27.1
--- NOTE | 2024-10-30 13:55 | CT_ITS ---
PROCEDURE: LOW DOSE CT LUNG SCREENING 10/30/2024 REASON FOR EXAM: SMOKING HISTORY, QUIT IN 2015 TECHNIQUE: Low Dose CT Lung screening without contrast. Coronal and Sagittal reconstruction series were provided. One or more dose reduction techniques were used (e.g., Automated exposure control, adjustment of the mA and/or kV according to patient size, use of iterative reconstruction technique). REFERENCE LINK: [facility] Lung-RADS RADIATION DOSE SUMMARY: CTDlvol: 2.01 mGy mGy DLP: 70.47 mGy.cm COMPARISON: None. FINDINGS: PULMONARY NODULES: (Only nodules >3mm are reported) Nodules described below are on series unless otherwise specified. Pulmonary Nodules: No suspicious pulmonary nodule. Hardware:Median sternotomy wires. Lymph Nodes:There are shotty nonspecific mediastinal lymph nodes. Limited evaluation. Probable Heart and Vasculature: Coronary Artery Calcifications: Extensive atheromatous disease calcifications is seen within the thoracic aorta. There are dense coronary artery calcification is present. Lungs and Airways: The trachea and central airway are patent. There is evidence of bilateral pulmonary bronchiectasis. There are areas of focal interstitial thickening particularly at the lung bases (image [id number]. There are several areas of subpleural pulmonary parenchymal irregularities for example on image 167/255. This may be due to scarring/some degree of chronic lung disease. There is no suspicious pulmonary nodule or mass is identified. Pleura:There is no pleural effusion. Upper Abdomen:Small hiatal hernia present. 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 Correlate clinically. Well-circumscribed lytic lesion seen within the right proximal clavicle best seen on image [id number]/255. No fractures identified. CT/Low Dose CT Lung Screening IMPRESSION: Dense coronary artery calcifications and atheromatous there is calcification in volving the visualized portion of the aorta Lung-RADS Category: 2 Other Significant Findings: Well-circumscribed lytic lesion within the proximal right clavicle. Other no aggressive features identified. This in general may represent mets or myeloma. Reading Location: [id number]
== END | disposition home or self-care (01) ==
LOC: CT 13:50
PROVIDERS: PCP Family Medicine; Referring Provider Nurse Practitioner Family; Visit Provider Nurse Practitioner Family
DX: Z12.2 Encounter for screening for malignant neoplasm of respiratory organs (principal); F17.210 Nicotine dependence, cigarettes, uncomplicated
CPT/HCPCS: 71271

== ENCOUNTER → 2024-11-19 | Outpatient (CLI) | payer MEDICARE, SELFPAY ==
[2024-05-29 11:21] VITALS: BMI 27.1
[2024-11-19 15:39] LABS: Absolute Lymphocyte Count 1.49 X10^3/uL (0.83-4.51); Absolute Neutrophil Count 7.1 X10^3/uL (2.0-7.7); Basophil# 0.03 X10^3/uL; Basophil% 0.3 % (0-1); Eosinophils% 2.1 % (0-5); Hematocrit 43.3 % (40-54); Hemoglobin 14.3 g/dL (13.0-16.5); Lymphocyte # 1.49 X10^3/ul (0.83-4.51); Lymphocyte % 15.5 % (19-41); Mean Corpuscular Hgb 29.6 pg (27.0-32.0); Mean Corpuscular Volume 89.6 fL (80-94); Mean Platelet Vol. 8.9 fl (6.2-12.0); Monocyte# 0.75 X10^3/uL; Monocyte% 7.8 % (0-10); NRBC Flagged by Analyzer 0 % (0-5); Neutrophil # 7.13 X10^3/uL (2.7-7.7); Neutrophil % 73.9 % (47-70); Platelet Count 248 K/mm3 (150-450); RBC Distribution Width CV 13.7 % (11.6-14.6); RBC Distribution Width SD 44.9 fl (35.1-43.9); Red Blood Count 4.83 M/mm3 (4.6-6.2); White Blood Count 9.6 K/mm3 (4.4-11.0)
[2024-11-19 16:14] LABS: ALB/GLOB Ratio 1.7 RATIO (0.9-2.4); AST(SGOT) 26 U/L (<=37); Alanine Aminotransfer ALT/SGPT 22 U/L (<=46); Albumin, Serum 4.3 g/dL (3.4-4.8); Alkaline Phosphatase 81 U/L (40-129); Anion Gap 11 (5-15); BUN 15 mg/dL (4-19); BUN/Creat Ratio 15.4 RATIO (10-20); Calcium,Total 9.4 mg/dL (7.6-11.0); Carbon Dioxide 23.9 mmol/L (21.0-32.0); Chloride 103 mmol/L (98-108); Creatinine, Serum 0.98 mg/dL (0.70-1.20); EST Glomerular Filtration Rate 79 (>60); Globulin 2.5 g/dL (2.2-4.2); Glucose 177 mg/dL (70-99); Potassium 4.1 mmol/L (3.3-5.1); Protein, Total 6.8 g/dL (5.9-8.4); Sodium Level 138 mmol/L (133-145); Total Bilirubin 0.51 mg/dL (0.00-1.30)
[2024-11-22 14:08] LABS: Albumin 3.8 g/dL (2.9-4.4); Alpha-1-Globulins 0.3 g/dL (0.0-0.4); Alpha-2-Globulins 0.8 g/dL (0.4-1.0); Gamma Globulin 0.8 g/dL (0.4-1.8); Immunoglobulin A 118 mg/dL (61-437); Immunoglobulin G 886 mg/dL (603-1613); Immunoglobulin M 69 mg/dL (15-143); PROEL- TOTAL PROTEIN 6.5 g/dL (6.0-8.5)
== END | disposition home or self-care (01) ==
LOC: LAB 14:22
PROVIDERS: PCP Family Medicine; Referring Provider Nurse Practitioner Family; Visit Provider Nurse Practitioner Family
DX: M89.8X9 Other specified disorders of bone, unspecified site (principal)
CPT/HCPCS: 36415; 80053; 82784; 84165; 85025; 86334